=== PATIENT | female | born 1945 | race Caucasian/White ===

== ENCOUNTER → 2018-01-17 12:58 | Outpatient (CLI) | payer MEDICARE, SELFPAY | PROVIDERS: Family Provider Family Medicine; PCP Family Medicine; Visit Provider Family Medicine | DX: I25.10 Atherosclerotic heart disease of native coronary artery without angina pectoris (principal) | CPT/HCPCS: 93306 ==

== ENCOUNTER → 2018-02-18 10:45 | Outpatient (CLI) | payer MEDICARE, SELFPAY ==
--- NOTE | 2018-02-18 10:51 | XR_ITS ---
XR foot LT min 3V HISTORY: ITS.REASON: PAIN IN GREAT TOE ORDERING PHYSICIAN: Christina De Jesus PATIENT AGE: 72 years COMPARISON: None FINDINGS: No fracture or dislocation. No lytic or blastic change. There is normal mineralization.. The joint spaces are well-preserved. No significant degenerative/arthritic changes. No erosive changes evident. There is mild generalized vascular calcification IMPRESSION: Negative, no acute finding
== END ==
PROVIDERS: PCP Family Medicine; Visit Provider Nurse Practitioner
DX: M79.675 Pain in left toe(s) (principal)
CPT/HCPCS: 73630

== ENCOUNTER → 2018-06-16 12:24 | Outpatient (CLI) | payer MEDICARE, SELFPAY ==
[2018-06-16 14:35] LABS: Alanine Aminotransferase 27 U/L (12-78); Albumin Level 3.7 gm/dL (3.4-5.0); Albumin/Globulin Ratio 1.1 (1.1-1.8); Alkaline Phosphatase 82 U/L (46-116); Aspartate Amino Transferase 31 U/L (15-37); Blood Urea Nitrogen 21 mg/dL (7-18); Calcium 8.6 mg/dL (8.5-10.1); Carbon Dioxide 26 mmol/L (21.0-32.0); Chloride 99 mmol/L (98-107); Creatinine,Serum 0.65 mg/dL (0.55-1.02); Estimated Glomerular Filt Rate 89 ml/min (>60); GFR (African American) 108 ML/MIN (>60); Globulin 3.4 gm/dl (1.3-3.2); Glucose 164 mg/dL (74-106); Sodium 136 mmol/L (136-145); Total Protein,Serum 7.1 gm/dL (6.4-8.2)
[2018-06-17 13:18] LABS: Parathyroid Hormone Intact 21 pg/mL (15-65)
== END ==
PROVIDERS: PCP Family Medicine; Visit Provider Family Medicine
DX: I25.10 Atherosclerotic heart disease of native coronary artery without angina pectoris (principal)
CPT/HCPCS: 36415; 80053; 83970; 93005

== ENCOUNTER 2021-02-08 14:40 | Emergency (ER) | payer MEDICARE, SELFPAY ==
[2021-02-08] VITALS (8 sets, daily range): BP systolic 107–132; BP diastolic 47–71; PULSE 45–90; RESP 13–19; TEMP 36.6–36.7; O2SAT 97–99; BMI 23.0
--- NOTE | 2021-02-08 14:15 | ECG_ITS ---
APPROVED REPORT Exam: Resting ECG HR:97 bpm ECG Measurements Heart Rate 97 AXES ME 134 P 44 QRSd 90 QRS 56 QT 346 T 165 QTc 439 Conclusion Sinus rhythm with frequent premature ventricular complexes in a pattern of bigeminy Possible Left atrial enlargement Low voltage QRS ST & T wave abnormality, consider inferolateral ischemia Abnormal ECG Electronically signed by : Mani Blood, 02/09/2021 18:05:24
--- NOTE | 2021-02-08 15:01 | XR_ITS ---
PROCEDURE: XR CHEST PORTABLE CLINICAL HISTORY: CARDIAC WORKUP COMPARISON: CR CXR CHEST(2 VIEWS-NOT PORTABLE) from 12/12/2016 FINDINGS: This is somewhat of a lordotic projection however this is a good inspiratory effort. The lung bonner are clear of infiltrate and there is no pleural fluid. Cardiac size is normal considering the portable technique. Sternal wire sutures are noted surgical clips from previous CABG. There are apparent minimal calcifications of the mitral valve annulus. IMPRESSION: No acute findings. Dictated by: Dr. Raz Crawford MD 02/08/2021 15:37 Dr. Raz Crawford MD in [place] 02/08/2021 15:37
--- NOTE | 2021-02-08 15:06 | HMH.EDGENADL ---
ED Disposition Clinical Impression: Abnormal EKG Disposition: Home, Self-Care Condition on Discharge: Good Referrals: Levar Levin MD [Primary Care Provider] - 02/10/21 9:00 am (Call for an appointment on Saturday) Time of Disposition: 18:11 - Critical Care Critical Care Time: No Attestation: On 02/08/21, the high probability of a clinically significant, sudden or life threatening deterioration of the following system(s) required my full and direct attention, intervention and personal management. The time I documented below is in addition to time spent performing reported procedures but includes the following listed in this critical care notation. Medical Decision Making - Medical Records Medical records reviewed: Yes: I reviewed the patient's medical records. - Adonis Inquiry Pt receiving controlled substance: No Vital Signs: 02/08/21 14:43 02/08/21 15:01 02/08/21 15:30 Temperature 98 F Temperature Source Oral Pulse Rate 90 Pulse Rate [Radial] 88 Respiratory Rate 16 17 18 Blood Pressure 132/51 L 119/47 L Blood Pressure [Right Arm] 129/58 L Blood Pressure Mean [Right Arm] 81 02 Sat by Pulse Oximetry 98 99 Oxygen Delivery Method Room Air Room Air 02/08/21 16:00 02/08/21 16:18 02/08/21 16:30 Temperature Temperature Source Pulse Rate 45 L 54 L 83 Pulse Rate [Radial] Respiratory Rate 19 16 13 Blood Pressure 117/49 L 129/57 L 114/49 L Blood Pressure [Right Arm] Blood Pressure Mean [Right Arm] 02 Sat by Pulse Oximetry 99 99 98 Oxygen Delivery Method 02/08/21 17:00 Temperature Temperature Source Pulse Rate 50 L Pulse Rate [Radial] Respiratory Rate 19 Blood Pressure 107/50 L Blood Pressure [Right Arm] Blood Pressure Mean [Right Arm] 02 Sat by Pulse Oximetry 97 Oxygen Delivery Method - Lab Data Lab results reviewed: Yes: I reviewed the patient's lab results. Lab Results 02/08/21 14:55: WBC 10.2, RBC 4.17 L, Hgb 13.3, Hct 38.4, MCV 92.1, MCH 31.9 H, MCHC 34.6, RDW 12.7, Plt Count 198, MPV 7.7, Neut % (Auto) 54.2, Lymph % (Auto) 40.4, Kimble % (Auto) 3.5, Eos % (Auto) 1.4, Baso % (Auto) 0.5, Neut # (Auto) 5.5, Lymph # (Auto) 4.1, Kimble # (Auto) 0.4, Eos # (Auto) 0.1, Baso # (Auto) 0.1 02/08/21 14:55: Sodium 137, Potassium 3.6, Chloride 98, Carbon Dioxide 23, Anion Gap 19.6 H, BUN 14, Creatinine 0.60, Estimated Creat Clear 45, Estimated GFR 97, Est GFR ( Amer) 118, Glucose 244 H, Calcium 9.4, Troponin I < 0.01 Result diagrams: 02/08/21 14:55 02/08/21 14:55 Orders (Tests/Meds): ORDERS Category Date Time Status Troponin I Q3H Lab 02/08/21 18:15 Ordered Troponin I Q3H Lab 02/08/21 21:15 Ordered - Radiology Data #1 Image(s): Chest Image Reviewed: Yes I have reviewed radiologist's interpretation Preliminary Findings: Normal/NAD - ECG Data Tracing #1 I reviewed this ECG and interpreted as documented below: 97 bpm with bigeminy. Nonspecific ST wave changes. Normal intervals. This is change from normal sinus rhythm with an incomplete right bundle branch block in 2018. ECG initial impression date: 02/08/21 ECG initial impression time: 15:00 Medical Decision Narrative: 75yo F evaluated for low heart rate. Patient is in no acute distress on initial evaluation. She is found to be in bigeminy on presenting EKG. Patient has no symptoms. Routine cardiac work-up is been initiated and is unremarkable. Troponin is less than 0.01. Case discussed with Dr. Levin as this EKG is a new finding for her. As the patient is asymptomatic and has normal work-up, he is comfortable with her discharge home. He request to see her in his [place] clinic on Saturday. She is to call tomorrow for an appointment time slot. All this was confirmed to the patient and to her daughter via phone. She is comfortable with the plan and excited to go home. General Adult HPI - General Chief complaint: Recheck/Abnormal Lab/Rx Stated complaint: HR low, s
[2021-02-08 15:11] LABS: Basophils # 0.1 K/mm3 (0-0.2); Basophils % 0.5 % (0.1-2.0); Eosinophils # 0.1 K/mm3 (0.0-0.4); Eosinophils % 1.4 % (0.1-12.0); Hematocrit 38.4 % (37.0-47.0); Hemoglobin 13.3 g/dL (12.2-16.2); Lymphocytes # 4.1 K/mm3 (0.7-4.5); Lymphocytes % 40.4 % (10-50); Mean Corpuscular HGB Conc 34.6 g/dL (31.8-35.4); Mean Corpuscular Hemoglobin 31.9 pg (27.0-31.2); Mean Corpuscular Volume 92.1 fl (81-99); Mean Platelet Volume 7.7 fl (7.4-10.4); Monocytes # 0.4 K/mm3 (0.1-1.0); Monocytes % 3.5 % (1.7-9.3); Neutrophils # 5.5 K/mm3 (1.8-7.8); Neutrophils % 54.2 % (37.0-80.0); Platelet Count 198 K/mm3 (142-424); Red Blood Count 4.17 M/mm3 (4.20-5.40); Red Cell Distribution Width 12.7 % (11.5-17.5); White Blood Count 10.2 K/mm3 (4.8-10.8)
[2021-02-08 15:15] LABS: Anion Gap 19.6 mEq/L (5-15); Blood Urea Nitrogen 14 mg/dl (7-17); Calcium 9.4 mg/dl (8.4-10.2); Carbon Dioxide 23 mmol/L (22.0-30.0); Chloride 98 mmol/L (98-107); Creatinine Clearance Estimated 45 mL/min (50-200); Estimated Glomerular Filt Rate 97 ml/min (>60); GFR (African American) 118 ML/MIN (>60); Glucose 244 mg/dl (74-100); Potassium 3.6 mmoL/L (3.5-5.1); Sodium 137 mmol/L (136-145)
[2021-02-08 15:28] LABS: Troponin I < 0.01 ng/ml (0.00-0.034)
--- NOTE | 2021-02-08 17:39 | PC.NURSE ---
Dr Ollie garcía.
--- NOTE | 2021-02-08 17:59 | PC.NURSE ---
paging dr philip again
== END 2021-02-08 18:22 | disposition home or self-care (01) ==
PROVIDERS: Emergency Provider Family Medicine; PCP Family Medicine
DX: I49.5 Sick sinus syndrome (principal); R94.31 Abnormal electrocardiogram [ECG] [EKG]; E11.9 Type 2 diabetes mellitus without complications; E78.5 Hyperlipidemia, unspecified; I10 Essential (primary) hypertension; Z79.899 Other long term (current) drug therapy
CPT/HCPCS: 71045; 80048; 84484; 85025; 93005; 96374; 99283

== ENCOUNTER → 2021-02-10 14:45 | Outpatient (CLI) | payer MEDICARE, SELFPAY ==
--- NOTE | 2021-02-10 14:50 | CA_ITS ---
APPROVED REPORT EXAM: Comprehensive 2D, Doppler, and color-flow Echocardiogram Bulkhead Carpenter: Roberta Luna RVT Ht: 5 ft 3 in Wt: 130lbs BSA: 1.61 BP: 107/50 mmHg Indications: ABN EKG,CABG,BIGEMINY,HTN,HLD,[place] SYNDROME,DM 2D Dimensions LVOT 2.03 cm (M/F) 1.5-2.5 LA Volume 34.00 mL LA Volume Index 21.11 mL/m2 (M/F) 16-34 M-Mode Dimensions RVDd 3.00 cm (0.9-2.6) LA Diam 4.25 cm (1.9-4.0) LVDd 4.29 cm (3.5-5.7) Ao Diam 2.89 cm (2.0-3.7) LVDs 3.22 cm (3.5-5.7) IVSd 1.41 cm (0.6-1.1) PWd 0.94 cm (0.6-1.1) EF (Teich) 49.60% FS 24.90% EDV (Teich) 82.60 mL ESV (Teich) 41.60 mL LV Diastology MED E' 6.80 (< 7 cm/sec) LAT A' 6.50 cm/s Aortic Valve LVOT Max 107.00 (70-110 cm/s) LVOT VTI 25.19 cm AoV Peak Jairo. 191.00 (50-130 cm/s) AO Peak GR. 14.60 mmHg AO Mean GR. 7.90 (<5 mmHg) AO VTI 38.71 (18-25 cm) FABIOLA (VTI) 2.11 (2.5-4.5 cm2) Pulmonary Valve PV Peak Velocity 76.00 (50-150 cm/s) Tricuspid Valve TR P. Velocity 278.00 cm/s RAP Estimate 10.00 mmHg RVSP 40.90 mmHg Left Ventricle Left atrium is moderately enlarged, left ventricle is normal size, mild concentric left ventricular hypertrophy, visually estimated ejection fraction 55% with no regional wall motion abnormality, grade 1 diastolic dysfunction seen without tissue Doppler evidence of raise left atrial pressure. Right Ventricle Right atrium and right ventricle mildly enlarged with normal contractility. Aortic Valve Aortic valve is thickened and calcified without Doppler evidence of aortic stenosis or aortic insufficiency. Mitral Valve Mitral valve has mitral annular calcification which extends to both anterior posterior mitral leaflet, there is no significant mitral inflow obstruction, chordal structures are calcified. There is mild mitral regurgitation. Tricuspid Valve Tricuspid valve leaflets are minimally thickened, there is mild tricuspid regurgitation, calculated right ventricular systolic pressure 39 mmHg. Pulmonic Valve Pulmonic valve is poorly visualized. Great Vessels Aortic root is normal size. Pericardium No significant pericardial effusion noted. Conclusion 1. Biatrial enlargement, normal left ventricular size, mild concentric left ventricular hypertrophy, visually estimated ejection fraction 55% with no regional wall motion abnormality, grade 1 diastolic dysfunction seen without tissue Doppler evidence of raise left atrial pressure. 2. Thickened and calcified aortic valve without aortic stenosis or aortic insufficiency. 3. Mild mitral and tricuspid regurgitation, calculated right ventricular systolic pressure 39 mmHg. 4. No significant pericardial effusion noted. Electronically signed by : Winston Romero, 02/11/2021 17:48:04
== END ==
PROVIDERS: PCP Family Medicine; Visit Provider Physician Assistant
DX: E11.69 Type 2 diabetes mellitus with other specified complication (principal); E78.5 Hyperlipidemia, unspecified; I10 Essential (primary) hypertension; I25.10 Atherosclerotic heart disease of native coronary artery without angina pectoris; I49.3 Ventricular premature depolarization; R94.31 Abnormal electrocardiogram [ECG] [EKG]; Z79.84 Long term (current) use of oral hypoglycemic drugs
CPT/HCPCS: 93306

== ENCOUNTER → 2021-02-22 11:19 | Outpatient (CLI) | payer MEDICARE, SELFPAY ==
--- NOTE | 2021-02-22 11:21 | CA_ITS ---
APPROVED REPORT Exam: Exercise Treadmill Technologist: sin carmichael, Ht: 5 ft 3 in Wt: 130 lbs BSA: 1.61 m2 HR: 70 bpm BP: 146/60 mmHg Indications: CAD Medical History Medications: Lisinopril,,,,, Metoprolol,,,,, Asa,,,,, Metformin,,,,, Synthroid,,,,, Crestor,,,,, FeNOfibrate,,,,, DApagliflozin,,,,, GlimepERIDE,,,,, Allergies: NKA Cardiac Risk Factors: HTN, Hyperlipidemia, Diabetes (non-insulin) Stress Test Details Test: Jose HR Resting HR: 80 bpm Max Heart Rate (APMHR): 145.813221 bpm Max HR Achieved: 146 bpm Target HR (85% APMHR): 123.998463 bpm % of APMHR: 100.69 Recovery HR: 98 bpm BP Resting BP: 146/60 mmHg Max BP: 156/63 mmHg Recovery BP: 130.0/70.0 mmHg ECG Resting ECG: NSR, PVC's, ST abns inferiorly Clinical Exercise duration: 05:36 min Highest Stage Achieved: Stage 2: 2.5 mph at 12% grade. Exercise capacity: 7.0 METs Stress ECG Conclusion Exercised 5:36 on Jose Protocol, stopping due to SOA. No chest pain. Moderately frequent isolated PVC's, Occ PAC, and some short runs of SVT in recovery. In recovery there is 1.25mm of horizontal ST depression in lead 1 and 0.5mm in lead avl with deep T wave inversion, later in recovery. Also mild exaggeration of baseline ST depression inferiorly. Abnormal GXT. No imaging. Electronically signed by : Giorgio Hernandez, 02/23/2021 09:23:22
== END ==
PROVIDERS: PCP Family Medicine; Visit Provider Physician Assistant
DX: I25.10 Atherosclerotic heart disease of native coronary artery without angina pectoris (principal); R94.31 Abnormal electrocardiogram [ECG] [EKG]; I49.3 Ventricular premature depolarization
CPT/HCPCS: 93017

== ENCOUNTER → 2021-03-14 11:57 | Outpatient (CLI) | payer MEDICARE, SELFPAY ==
[2021-03-14 13:00] LABS: Anion Gap 16.5 mEq/L (5-15); Blood Urea Nitrogen 20 mg/dl (7-17); Calcium 9.8 mg/dl (8.4-10.2); Carbon Dioxide 26 mmol/L (22.0-30.0); Chloride 100 mmol/L (98-107); Estimated Glomerular Filt Rate 81 ml/min (>60); GFR (African American) 98 ML/MIN (>60); Glucose 149 mg/dl (74-100); Potassium 4.5 mmoL/L (3.5-5.1); Sodium 138 mmol/L (136-145)
[2021-03-14 13:21] LABS: Basophils % 0.4 % (0.1-2.0); Eosinophils # 0.1 K/mm3 (0.0-0.4); Eosinophils % 1.4 % (0.1-12.0); Hematocrit 38.9 % (37.0-47.0); Hemoglobin 13.2 g/dL (12.2-16.2); Lymphocytes # 3.6 K/mm3 (0.7-4.5); Lymphocytes % 35.4 % (10-50); Mean Corpuscular HGB Conc 33.9 g/dL (31.8-35.4); Mean Corpuscular Hemoglobin 31.3 pg (27.0-31.2); Mean Corpuscular Volume 92.3 fl (81-99); Mean Platelet Volume 7.6 fl (7.4-10.4); Monocytes # 0.4 K/mm3 (0.1-1.0); Monocytes % 3.9 % (1.7-9.3); Neutrophils # 5.9 K/mm3 (1.8-7.8); Neutrophils % 58.8 % (37.0-80.0); Platelet Count 194 K/mm3 (142-424); Red Blood Count 4.22 M/mm3 (4.20-5.40); Red Cell Distribution Width 12.7 % (11.5-17.5); White Blood Count 10.1 K/mm3 (4.8-10.8)
== END ==
PROVIDERS: Visit Provider Internal Medicine Cardiovascular Disease
DX: E11.9 Type 2 diabetes mellitus without complications (principal); E78.5 Hyperlipidemia, unspecified; I10 Essential (primary) hypertension; I25.10 Atherosclerotic heart disease of native coronary artery without angina pectoris; R94.39 Abnormal result of other cardiovascular function study; Z95.1 Presence of aortocoronary bypass graft; Z01.812 Encounter for preprocedural laboratory examination; Z20.822 Contact with and (suspected) exposure to COVID-19; Z79.84 Long term (current) use of oral hypoglycemic drugs
CPT/HCPCS: 80048; 85025; U0003

== ENCOUNTER 2021-03-17 07:58 | Day surgery (SDC) | payer MEDICARE, SELFPAY ==
[2021-03-17] VITALS (12 sets, daily range): BP systolic 98–141; BP diastolic 53–76; PULSE 60–74; RESP 18–20; TEMP 36.7; O2SAT 95–100; BMI 23.0
--- NOTE | 2021-03-17 | IR_ITS ---
APPROVED REPORT Patient Location: Outpatient PROCEDURES Left heart catheterization Left ventriculogram Selective coronary angiogram Selective engagement of the left internal mammary artery to the LAD Selective engagement of the saphenous vein graft to circumflex artery Selective engage in the saphenous vein graft to the right coronary INDICATION Coronary artery disease, History of coronary bypass surgery, Abnormal stress test Informed consent was obtained prior to the procedure. COMPLICATIONS NONE Estimated Blood Loss: LESS THAN 10 ML TECHNIQUE One percent lidocaine used to anesthetize the right groin. The right femoral artery was accessed via the Seldinger technique and a 5 Latvian sheath was placed in the right femoral artery. A JL 4, JR4 catheter were used to perform left heart catheterization, left ventriculogram selective coronary angiography as well as selective engagement of the 2 vein grafts and the left internal mammary artery. At the end of the procedure the patient was transferred to the postop holding area in stable condition for sheath removal. ANGIOGRAPHIC RESULTS The left main artery Normal The left anterior descending artery Is patent in the proximal segment and has an 80% stenosis between the first diagonal artery and the first septal youth support worker. Distal to the second septal youth support worker the LAD is then occluded. First diagonal artery is a small to medium sized vessel with no competitive flow however the vessel was patent and does supply a moderate amount of myocardium through diffuse small vessels The circumflex artery Probably nondominant and proximally occluded distally the vessel fills via left to left collaterals mostly from the septal perforators The right coronary artery Is a dominant vessel and proximally occluded The BARNES ventriculogram reveals Normal 65% The left ventricular end-diastolic pressure 10 mmHg Left internal mammary artery is widely patent to the LAD Saphenous vein graft to circumflex artery is ostially occluded Saphenous vein graft to the right coronary is ostially occluded IMPRESSION Coronary disease as described above Normal ejection fraction Normal left ventricular and SI pressure PLAN 1. Medical management. Patient has excellent collaterals and also has normal ejection fraction. 2. Maximize antianginal medications and standard therapy for ischemic heart disease Electronically signed by : Giorgio Hernandez, 03/17/2021 15:26:27
== END 2021-03-17 17:29 | disposition home or self-care (01) ==
LOC: CATHLAB 08:01
PROVIDERS: PCP Family Medicine; Visit Provider Internal Medicine
DX: I25.10 Atherosclerotic heart disease of native coronary artery without angina pectoris (principal); I25.810 Atherosclerosis of coronary artery bypass graft(s) without angina pectoris; R94.39 Abnormal result of other cardiovascular function study; E11.9 Type 2 diabetes mellitus without complications; Z79.84 Long term (current) use of oral hypoglycemic drugs; Z95.1 Presence of aortocoronary bypass graft; I10 Essential (primary) hypertension
CPT/HCPCS: 93459; 99152; C1725; C1769; C1894; J1644; Q9967

== ENCOUNTER → 2021-04-10 11:20 | Outpatient (CLI) | payer MEDICARE, SELFPAY | PROVIDERS: Visit Provider Ophthalmology | DX: Z01.812 Encounter for preprocedural laboratory examination (principal); Z20.822 Contact with and (suspected) exposure to COVID-19 | CPT/HCPCS: U0003 ==

== ENCOUNTER 2021-04-11 09:34 | Day surgery (SDC) | payer MEDICARE, SELFPAY ==
[2021-04-05 13:31] VITALS: BMI 23.0
[2021-04-11 09:50] VITALS: BP 139/52; PULSE 88; RESP 18; TEMP 36.5; O2SAT 99
[2021-04-11 10:08] LABS: POC Glucose,Bedside 194 (70-110)
[2021-04-11 11:19] VITALS: BP 117/58; PULSE 69; RESP 16; O2SAT 99
[2021-04-11 11:24] VITALS: BP 106/58; PULSE 72; RESP 16; O2SAT 99
[2021-04-11 11:29] VITALS: BP 107/57; PULSE 72; RESP 16; O2SAT 99
[2021-04-11 11:34] VITALS: BP 99/54; PULSE 69; RESP 16; O2SAT 100
[2021-04-11 11:35] VITALS: BP 119/58; PULSE 71; RESP 16; TEMP 36.6; O2SAT 100
== END 2021-04-11 11:45 | disposition home or self-care (01) ==
LOC: OR 09:35
PROVIDERS: PCP Family Medicine; Visit Provider Ophthalmology
DX: H25.811 Combined forms of age-related cataract, right eye (principal); H53.149 Visual discomfort, unspecified; Z96.1 Presence of intraocular lens; E11.9 Type 2 diabetes mellitus without complications; I10 Essential (primary) hypertension; E78.5 Hyperlipidemia, unspecified; Z95.1 Presence of aortocoronary bypass graft; Z79.82 Long term (current) use of aspirin; Z79.84 Long term (current) use of oral hypoglycemic drugs; Z79.899 Other long term (current) drug therapy
CPT/HCPCS: 66984; 82962; V2632

== ENCOUNTER → 2022-02-27 12:17 | Outpatient (CLI) | payer MEDICARE, SELFPAY ==
[2022-02-27 18:51] LABS: Alanine Aminotransferase 24 U/L (12-78); Albumin Level 4.2 g/dl (3.5-5.0); Albumin/Globulin Ratio 1.6 (1.1-1.8); Alkaline Phosphatase 77 U/L (38-126); Anion Gap 13.9 mEq/L (5-15); Aspartate Amino Transferase 39 U/L (14-36); Bilirubin,Total 0.5 mg/dl (0.2-1.3); Blood Urea Nitrogen 16 mg/dl (7-17); Calcium 10.2 mg/dl (8.4-10.2); Carbon Dioxide 27 mmol/L (22.0-30.0); Chloride 101 mmol/L (98-107); Estimated Glomerular Filt Rate 97 ml/min (>60); GFR (African American) 118 ML/MIN (>60); Globulin 2.7 g/dL (1.3-3.2); Glucose 191 mg/dl (74-100); Potassium 4.9 mmoL/L (3.5-5.1); Sodium 137 mmol/L (136-145); Total Protein,Serum 6.9 g/dl (6.3-8.2)
== END ==
PROVIDERS: PCP Family Medicine; Visit Provider Family Medicine
DX: E11.65 Type 2 diabetes mellitus with hyperglycemia (principal); Z79.84 Long term (current) use of oral hypoglycemic drugs
CPT/HCPCS: 80053

== ENCOUNTER → 2022-05-29 10:15 | Outpatient (CLI) | payer MEDICARE, SELFPAY ==
[2022-05-29 19:08] LABS: Alanine Aminotransferase 19 U/L (12-78); Albumin Level 4.3 g/dl (3.5-5.0); Albumin/Globulin Ratio 1.5 (1.1-1.8); Alkaline Phosphatase 78 U/L (38-126); Anion Gap 19.6 mEq/L (5-15); Aspartate Amino Transferase 33 U/L (14-36); Bilirubin,Total 0.6 mg/dl (0.2-1.3); Blood Urea Nitrogen 15 mg/dl (7-17); Calcium 9.5 mg/dl (8.4-10.2); Carbon Dioxide 25 mmol/L (22.0-30.0); Chloride 100 mmol/L (98-107); Estimated Glomerular Filt Rate 97 ml/min (>60); GFR (African American) 117 ML/MIN (>60); Globulin 2.8 g/dL (1.3-3.2); Glucose 120 mg/dl (74-100); Potassium 4.6 mmoL/L (3.5-5.1); Sodium 140 mmol/L (136-145); Total Protein,Serum 7.1 g/dl (6.3-8.2)
== END ==
PROVIDERS: PCP Family Medicine; Visit Provider Family Medicine
DX: E11.65 Type 2 diabetes mellitus with hyperglycemia (principal); Z79.84 Long term (current) use of oral hypoglycemic drugs
CPT/HCPCS: 80053

== ENCOUNTER → 2022-07-17 09:40 | Outpatient (CLI) | payer MEDICARE, SELFPAY ==
[2022-07-17 19:21] LABS: Erythrocyte Sedimentation Rate 21 mm/hr (0-30)
[2022-07-17 19:49] LABS: Thyroid Stimulating Hormone 0.77 uIU/mL (0.465-4.68)
== END ==
PROVIDERS: PCP Family Medicine; Visit Provider Family Medicine
DX: E11.69 Type 2 diabetes mellitus with other specified complication (principal); L65.9 Nonscarring hair loss, unspecified; Z79.84 Long term (current) use of oral hypoglycemic drugs; Z79.899 Other long term (current) drug therapy
CPT/HCPCS: 84443; 85651

== ENCOUNTER → 2022-07-31 08:19 | Outpatient (POV) | payer MEDICARE, SELFPAY | PROVIDERS: Visit Provider Dermatology | DX: Z00.00 Encounter for general adult medical examination without abnormal findings (principal) ==

== ENCOUNTER → 2022-08-31 10:00 | Outpatient (CLI) | payer MEDICARE, SELFPAY ==
[2022-08-31 18:35] LABS: Alanine Aminotransferase 23 U/L (12-78); Albumin Level 4.7 g/dl (3.5-5.0); Albumin/Globulin Ratio 1.7 (1.1-1.8); Alkaline Phosphatase 58 U/L (38-126); Anion Gap 16.1 mEq/L (5-15); Aspartate Amino Transferase 37 U/L (14-36); Bilirubin,Total 0.6 mg/dl (0.2-1.3); Blood Urea Nitrogen 17 mg/dl (7-17); Calcium 10.1 mg/dl (8.4-10.2); Carbon Dioxide 24 mmol/L (22.0-30.0); Chloride 103 mmol/L (98-107); Chol/HDL Ratio 3.8 (1-3.5); Cholesterol 166 mg/dl (140-200); Estimated Glomerular Filt Rate 81 ml/min (>60); GFR (African American) 98 ML/MIN (>60); Globulin 2.7 g/dL (1.3-3.2); Glucose 121 mg/dl (74-100); HDL Cholesterol 44 mg/dl (40-60); Potassium 4.1 mmoL/L (3.5-5.1); Sodium 139 mmol/L (136-145); Total Protein,Serum 7.4 g/dl (6.3-8.2); Triglycerides 237 mg/dl (30-150); VLDL Cholesterol 47 mg/dL (0-40)
[2022-08-31 18:45] LABS: Direct LDL Cholesterol 86.37 mg/dL (100-129)
== END ==
PROVIDERS: PCP Family Medicine; Visit Provider Family Medicine
DX: E78.5 Hyperlipidemia, unspecified (principal); E11.69 Type 2 diabetes mellitus with other specified complication; Z79.84 Long term (current) use of oral hypoglycemic drugs
CPT/HCPCS: 80053; 80061

== ENCOUNTER → 2022-10-26 11:00 | Outpatient (CLI) | payer MEDICARE, SELFPAY ==
[2022-10-26 19:48] LABS: Chloride 102 mmol/L (98-107); Potassium 4.6 mmoL/L (3.5-5.1); Sodium 139 mmol/L (136-145)
[2022-10-26 19:51] LABS: Alanine Aminotransferase 21 U/L (12-78); Albumin Level 4.6 g/dl (3.5-5.0); Albumin/Globulin Ratio 1.7 (1.1-1.8); Alkaline Phosphatase 63 U/L (38-126); Anion Gap 15.6 mEq/L (5-15); Aspartate Amino Transferase 38 U/L (14-36); Bilirubin,Total 0.8 mg/dl (0.2-1.3); Blood Urea Nitrogen 19 mg/dl (7-17); Carbon Dioxide 26 mmol/L (22.0-30.0); Estimated Glomerular Filt Rate 97 ml/min (>60); GFR (African American) 117 ML/MIN (>60); Globulin 2.7 g/dL (1.3-3.2); Total Protein,Serum 7.3 g/dl (6.3-8.2)
[2022-10-26 19:52] LABS: Calcium 9.7 mg/dl (8.4-10.2); Glucose 129 mg/dl (74-100)
== END ==
PROVIDERS: PCP Family Medicine; Visit Provider Family Medicine
DX: I10 Essential (primary) hypertension (principal)
CPT/HCPCS: 80053

== ENCOUNTER → 2023-03-19 14:50 | Outpatient (CLI) | payer MEDICARE, SELFPAY ==
[2023-03-19 18:32] LABS: Anion Gap 15.3 mEq/L (5-15); Blood Urea Nitrogen 16 mg/dl (7-17); Calcium 9.7 mg/dl (8.4-10.2); Carbon Dioxide 25 mmol/L (22.0-30.0); Chloride 104 mmol/L (98-107); Estimated Glomerular Filt Rate 69 ml/min (>60); GFR (African American) 84 ML/MIN (>60); Glucose 255 mg/dl (74-100); Potassium 4.3 mmoL/L (3.5-5.1); Sodium 140 mmol/L (136-145)
[2023-03-19 19:24] LABS: Hemoglobin A1C 7.4 % (4.0-6.0)
== END ==
PROVIDERS: PCP Family Medicine; Visit Provider Family Medicine
DX: E11.69 Type 2 diabetes mellitus with other specified complication; Z79.84 Long term (current) use of oral hypoglycemic drugs
CPT/HCPCS: 80048; 83036

== ENCOUNTER 2023-06-10 10:45 | Emergency (ER) | payer MEDICARE, SELFPAY ==
[2023-06-10 10:46] VITALS: BP 112/73; PULSE 87; RESP 18; TEMP 36.5; O2SAT 99; BMI 22.1
--- NOTE | 2023-06-10 12:09 | EXP.UTC ---
Discharge Plan Disposition Patient Disposition: Home, Self-Care Condition: Good Prescriptions Prescriptions: New methocarbamol 500 mg tablet 500 mg PO BID PRN (Reason: muscle spasm) Qty: 12 0RF No Action aspirin [Adult Low Dose Aspirin] 81 mg tablet,delayed release (DR/EC) 81 mg PO ONCE metformin 500 mg tablet 500 mg PO BID Qty: 90 2RF levothyroxine 75 mcg tablet 75 mcg PO DAILY 90 Days Qty: 90 1RF metoprolol succinate 25 mg tablet extended release 24 hr See Rx Instructions .ROUTE .COMPLEX Qty: 90 0RF Dose Instruction: TAKE 1 TABLET EVERY DAY Rx Instructions: TAKE 1 TABLET EVERY DAY (DME) Blood Glucose Test Strip See Rx Instructions .ROUTE .MEDSUPPLY Qty: 50 12RF Rx Instructions: Test glucose once daily rosuvastatin 5 mg tablet 5 mg PO DAILY Qty: 90 3RF fenofibrate nanocrystallized [Tricor] 48 mg tablet 48 mg PO DAILY Qty: 90 0RF lisinopril 10 mg tablet See Rx Instructions .ROUTE .COMPLEX Qty: 90 0RF Dose Instruction: TAKE 1 TABLET EVERY DAY FOR HIGH BLOOD PRESSURE Rx Instructions: TAKE 1 TABLET EVERY DAY FOR HIGH BLOOD PRESSURE glimepiride 4 mg tablet See Rx Instructions .ROUTE .COMPLEX Qty: 90 0RF Dose Instruction: TAKE 1 TABLET EVERY DAY FOR DIABETES Rx Instructions: TAKE 1 TABLET EVERY DAY FOR DIABETES Trulicity 1.5 mg/0.5 mL pen injector 1.5 mg SQ WEEKLY Qty: 2 2RF Referrals Follow up/Referrals: Levar Levin MD [Primary Care Provider] - See instructions Activity Restrictions/Add. Instructions Additional Instructions/Restrictions: *Ibuprofen nir 6 hours with meal as needed for pain/inflammation if you can take it if not take Tylenol *moist heat every 20 minutes 3-4 times a day to affected area *Muscle relaxer every 12 hours as needed for muscle spasms but remember, it WILL cause drowsiness You cannot take it and drive, operate machinery or care for small children. *Keep this area active, no movement leads to more stiffness, However take it easy and avoid heavy lifting pushing or pulling *Follow up with you family doctor if no improvement for further treatment Clinical Impressions Clinical Impression: Sciatica of left side Instructions Patient Instructions: DI for Sciatica, Sciatica, Methocarbamol Discharge ED Provider: Kiesha Buckley [facility] [place] General Stated complaint: BUTTOCKS AND BACK LT SIDE Mode of Arrival: Ambulatory Source of Information: Patient Limitations: No Limitations Time Seen by Provider: 06/10/23 12:09 Description of Symptoms (Recalled from Triage Doc. by RN): Pt was working out at the [facility]. She stated that for the last 3 weeks she has had lower back pain that radiates down her butt, and to her leg. This is on the left side. She stated that it just keeps getting worse. HEENT Symptoms (Recalled from RN notes): No Resp Symptoms (Recalled from RN notes): No Skin Symptoms (Recalled from RN notes): No MS Symptoms (Recalled from RN notes): Yes Functional Status (Recalled from RN notes): n/a History of Present Illness Provider Complaint: Patient states that she pulled her hamstring several years ago and thinks she may have aggrivated it States that she was exercising at the senior citizen's home about 3 weeks ago and felt a pain in her buttock area and states that it has not got any better States that pain is in her buttock area and goes down into her upper leg and worse when she sits on that side or raises leg Denies back pain Denies loss of control of bowel or bladder States that she feels like she pulled something Related Data Home Medications Medication Instructions Recorded Confirmed aspirin 81 mg tablet,delayed 81 mg PO ONCE CAD 11/16/17 06/10/23 release (Adult Low Dose Aspirin) Previous Rx's Medication Instructions Recorded levothyroxine 75 mcg tablet 75 mcg PO DAILY thyroid 90 days 12/31/22 #90 tabs metformin 500 mg tablet 500
[2023-06-10 12:28] VITALS: BP 112/73; PULSE 87; RESP 18; TEMP 36.5; O2SAT 99
== END 2023-06-10 12:28 | disposition home or self-care (01) ==
PROVIDERS: Emergency Provider Nurse Practitioner; PCP Family Medicine
DX: M54.32 Sciatica, left side (principal); I25.10 Atherosclerotic heart disease of native coronary artery without angina pectoris; I11.9 Hypertensive heart disease without heart failure; E78.5 Hyperlipidemia, unspecified; E11.9 Type 2 diabetes mellitus without complications; Z79.84 Long term (current) use of oral hypoglycemic drugs
CPT/HCPCS: 99204; 99212; G0463

== ENCOUNTER → 2023-08-14 23:27 | Outpatient (CLI) | payer MEDICARE, SELFPAY ==
[2023-08-14 18:47] LABS: Basophils # 0.1 K/mm3 (0-0.2); Basophils % 0.7 % (0.1-2.0); Eosinophils # 0.2 K/mm3 (0.0-0.4); Eosinophils % 1.8 % (0.1-12.0); Hematocrit 41.2 % (37.0-47.0); Hemoglobin 14.5 g/dL (12.2-16.2); Lymphocytes # 4.1 K/mm3 (0.7-4.5); Lymphocytes % 42.6 % (10-50); Mean Corpuscular HGB Conc 35.3 g/dL (31.8-35.4); Mean Corpuscular Hemoglobin 32.9 pg (27.0-31.2); Mean Corpuscular Volume 93.3 fl (81-99); Mean Platelet Volume 8.8 fl (7.4-10.4); Monocytes # 0.4 K/mm3 (0.1-1.0); Monocytes % 4.5 % (1.7-9.3); Neutrophils # 4.9 K/mm3 (1.8-7.8); Neutrophils % 50.5 % (37.0-80.0); Platelet Count 223 K/mm3 (142-424); Red Blood Count 4.41 M/mm3 (4.20-5.40); Red Cell Distribution Width 12.7 % (11.5-17.5); White Blood Count 9.7 K/mm3 (4.8-10.8)
[2023-08-14 18:52] LABS: Alanine Aminotransferase 25 U/L (12-78); Albumin Level 4.6 g/dl (3.5-5.0); Albumin/Globulin Ratio 1.6 (1.1-1.8); Alkaline Phosphatase 59 U/L (38-126); Anion Gap 14.1 mEq/L (5-15); Aspartate Amino Transferase 41 U/L (14-36); Bilirubin,Total 0.6 mg/dl (0.2-1.3); Blood Urea Nitrogen 13 mg/dl (7-17); Carbon Dioxide 24 mmol/L (22.0-30.0); Chloride 101 mmol/L (98-107); Estimated Glomerular Filt Rate 97 ml/min (>60); GFR (African American) 117 ML/MIN (>60); Globulin 2.9 g/dL (1.3-3.2); Glucose 113 mg/dl (74-100); Potassium 4.1 mmoL/L (3.5-5.1); Sodium 135 mmol/L (136-145); Total Protein,Serum 7.5 g/dl (6.3-8.2)
[2023-08-14 19:23] LABS: Thyroid Stimulating Hormone 0.15 uIU/mL (0.465-4.68)
[2023-08-14 19:46] LABS: Hemoglobin A1C 7.1 % (4.0-6.0)
== END ==
LOC: LAB.DROPOF 23:28
PROVIDERS: PCP Family Medicine; Visit Provider Nurse Practitioner
DX: R42 Dizziness and giddiness (principal); L65.9 Nonscarring hair loss, unspecified; E11.8 Type 2 diabetes mellitus with unspecified complications; Z79.84 Long term (current) use of oral hypoglycemic drugs
CPT/HCPCS: 80053; 83036; 84443; 85025

== ENCOUNTER 2023-09-24 22:05 | Outpatient (CLI) | payer MEDICARE, SELFPAY ==
[2023-09-24 19:24] LABS: Basophils # 0.1 K/mm3 (0-0.2); Basophils % 0.8 % (0.1-2.0); Eosinophils # 0.1 K/mm3 (0.0-0.4); Eosinophils % 1.5 % (0.1-12.0); Hematocrit 39.6 % (37.0-47.0); Hemoglobin 13.3 g/dL (12.2-16.2); Lymphocytes # 3.4 K/mm3 (0.7-4.5); Mean Corpuscular HGB Conc 33.6 g/dL (31.8-35.4); Mean Corpuscular Hemoglobin 32.3 pg (27.0-31.2); Mean Corpuscular Volume 96.1 fl (81-99); Mean Platelet Volume 9.4 fl (7.4-10.4); Monocytes # 0.3 K/mm3 (0.1-1.0); Neutrophils # 3.8 K/mm3 (1.8-7.8); Neutrophils % 49.7 % (37.0-80.0); Platelet Count 183 K/mm3 (142-424); Red Blood Count 4.12 M/mm3 (4.20-5.40); Red Cell Distribution Width 12.8 % (11.5-17.5); White Blood Count 7.7 K/mm3 (4.8-10.8)
[2023-09-24 19:57] LABS: Chloride 106 mmol/L (98-107); Sodium 138 mmol/L (136-145)
[2023-09-24 19:58] LABS: Potassium 4.6 mmoL/L (3.5-5.1)
[2023-09-24 20:00] LABS: Alanine Aminotransferase 23 U/L (12-78); Albumin Level 4.3 g/dl (3.5-5.0); Albumin/Globulin Ratio 1.6 (1.1-1.8); Alkaline Phosphatase 54 U/L (38-126); Anion Gap 12.6 mEq/L (5-15); Aspartate Amino Transferase 36 U/L (14-36); Bilirubin,Total 0.6 mg/dl (0.2-1.3); Blood Urea Nitrogen 15 mg/dl (7-17); Calcium 9.9 mg/dl (8.4-10.2); Carbon Dioxide 24 mmol/L (22.0-30.0); Estimated Glomerular Filt Rate 97 ml/min (>60); GFR (African American) 117 ML/MIN (>60); Globulin 2.7 g/dL (1.3-3.2); Glucose 147 mg/dl (74-100)
[2023-09-24 20:24] LABS: Magnesium 1.1 mg/dl (1.6-2.3)
== END 2023-09-24 23:59 ==
LOC: LAB.DROPOF 22:06
PROVIDERS: PCP Family Medicine; Visit Provider Family Medicine
DX: E11.9 Type 2 diabetes mellitus without complications (principal); I10 Essential (primary) hypertension; Z79.84 Long term (current) use of oral hypoglycemic drugs
CPT/HCPCS: 80053; 83735; 85025

== ENCOUNTER 2023-10-15 15:04 | Outpatient (CLI) | payer MEDICARE, SELFPAY | END 2023-10-15 23:59 | LOC: LAB.DROPOF 15:05 | PROVIDERS: PCP Nurse Practitioner; Visit Provider Nurse Practitioner | DX: R30.0 Dysuria (principal); B96.29 Other Escherichia coli [E. coli] as the cause of diseases classified elsewhere; B96.89 Other specified bacterial agents as the cause of diseases classified elsewhere | CPT/HCPCS: 87086 ==

== ENCOUNTER 2023-10-25 20:03 | Outpatient (CLI) | payer MEDICARE, SELFPAY | END 2023-10-25 23:59 | LOC: LAB.DROPOF 20:03 | PROVIDERS: PCP Nurse Practitioner Family; Visit Provider Nurse Practitioner Family | DX: R30.0 Dysuria (principal); B96.89 Other specified bacterial agents as the cause of diseases classified elsewhere | CPT/HCPCS: 87086 ==

== ENCOUNTER 2023-11-15 18:33 | Outpatient (CLI) | payer MEDICARE, SELFPAY ==
[2023-11-15 18:05] LABS: Basophils # 0.1 K/mm3 (0-0.2); Basophils % 1.1 % (0.1-2.0); Eosinophils # 0.1 K/mm3 (0.0-0.4); Eosinophils % 1.3 % (0.1-12.0); Hematocrit 40.8 % (37.0-47.0); Hemoglobin 13.3 g/dL (12.2-16.2); Lymphocytes # 3.2 K/mm3 (0.7-4.5); Mean Corpuscular HGB Conc 32.5 g/dL (31.8-35.4); Mean Corpuscular Hemoglobin 32.3 pg (27.0-31.2); Mean Corpuscular Volume 99.6 fl (81-99); Mean Platelet Volume 9.4 fl (7.4-10.4); Monocytes # 0.3 K/mm3 (0.1-1.0); Neutrophils # 3.6 K/mm3 (1.8-7.8); Neutrophils % 49.6 % (37.0-80.0); Platelet Count 229 K/mm3 (142-424); Red Cell Distribution Width 13.1 % (11.5-17.5); White Blood Count 7.3 K/mm3 (4.8-10.8)
[2023-11-15 18:47] LABS: Alanine Aminotransferase 25 U/L (12-78); Albumin Level 4.2 g/dl (3.5-5.0); Albumin/Globulin Ratio 1.6 (1.1-1.8); Alkaline Phosphatase 72 U/L (38-126); Aspartate Amino Transferase 37 U/L (14-36); Bilirubin,Total 0.8 mg/dl (0.2-1.3); Blood Urea Nitrogen 17 mg/dl (7-17); Calcium 9.9 mg/dl (8.4-10.2); Carbon Dioxide 26 mmol/L (22.0-30.0); Chloride 104 mmol/L (98-107); Chol/HDL Ratio 7.5 (1-3.5); Cholesterol 248 mg/dl (140-200); Estimated Glomerular Filt Rate 97 ml/min (>60); GFR (African American) 117 ML/MIN (>60); Globulin 2.7 g/dL (1.3-3.2); Glucose 242 mg/dl (74-100); HDL Cholesterol 33 mg/dl (40-60); Magnesium 1.3 mg/dl (1.6-2.3); Sodium 137 mmol/L (136-145); Total Protein,Serum 6.9 g/dl (6.3-8.2); Triglycerides 345 mg/dl (30-150); VLDL Cholesterol 69 mg/dL (0-40)
[2023-11-15 18:57] LABS: Hemoglobin A1C 8.3 % (4.0-6.0)
[2023-11-15 18:58] LABS: Direct LDL Cholesterol 130.63 mg/dL (100-129)
[2023-11-15 19:07] LABS: 25-OH Vitamin D, Total 18.6 ng/mL (30-100)
[2023-11-15 19:19] LABS: Thyroid Stimulating Hormone 0.61 uIU/mL (0.465-4.68)
[2023-11-15 19:38] LABS: Vitamin B12 283 pg/mL (239-931)
== END 2023-11-15 23:59 ==
LOC: LAB.DROPOF 18:34
PROVIDERS: PCP Nurse Practitioner Family; Visit Provider Nurse Practitioner Family
DX: E78.5 Hyperlipidemia, unspecified (principal); E11.9 Type 2 diabetes mellitus without complications; E55.9 Vitamin D deficiency, unspecified; R30.0 Dysuria; B95.2 Enterococcus as the cause of diseases classified elsewhere; Z79.84 Long term (current) use of oral hypoglycemic drugs
CPT/HCPCS: 80053; 80061; 82306; 82607; 83036; 83735; 84443; 85025; 87086

== ENCOUNTER 2023-11-29 07:39 | Outpatient (CLI) | payer MEDICARE, SELFPAY | END 2023-11-29 23:59 | LOC: LAB.DROPOF 12-01 07:40 | PROVIDERS: PCP Nurse Practitioner Family; Visit Provider Nurse Practitioner Family | DX: R30.0 Dysuria (principal); B96.89 Other specified bacterial agents as the cause of diseases classified elsewhere | CPT/HCPCS: 87086 ==

== ENCOUNTER 2023-12-17 18:00 | Outpatient (CLI) | payer MEDICARE, SELFPAY | END 2023-12-17 23:59 | disposition home or self-care (01) | LOC: LAB.DROPOF 12-18 12:53 | PROVIDERS: PCP Family Medicine; Visit Provider Family Medicine | DX: R30.0 Dysuria (principal); B95.2 Enterococcus as the cause of diseases classified elsewhere | CPT/HCPCS: 87086 ==

== ENCOUNTER 2024-01-14 12:05 | Outpatient (CLI) | payer MEDICARE, SELFPAY | END 2024-01-14 23:59 | disposition home or self-care (01) | LOC: LAB.DROPOF 01-15 12:05 | PROVIDERS: PCP Nurse Practitioner; Visit Provider Nurse Practitioner | DX: R30.0 Dysuria (principal) | CPT/HCPCS: 87086 ==

== ENCOUNTER 2024-02-03 15:47 | Outpatient (CLI) | payer MEDICARE, SELFPAY ==
[2024-02-03 15:45] LABS: Microscopic, Urine URINE MICROSCOPIC (MICROSCOPIC)
[2024-02-03 16:10] LABS: Appearance,Urine CLEAR (Clear); Bilirubin,Urine Negative (Negative); Blood, Urine Negative (Negative); Color,Urine YELLOW (Yellow); Glucose,Urine (UA) 2+ (Negative); Ketones,Urine Negative (Negative); Leukocyte Esterase,Urine Negative (Negative); Nitrate,Urine Negative (Negative); PH,Urine 5.5 (5.0-8.5); Protein,Urine Negative (Negative); Specific Gravity, Urine 1.025 (1.005-1.030); Urobilinogen,Urine 0.2 EU/dl (0.2)
[2024-02-03 16:57] LABS: Squamous Epithelial Cell,Urine Occasional #/hpf (0-5)
[2024-02-07 18:12] LABS: Atopobium vaginae Low - 0 Score (.); BVAB2 Low - 0 Score (.); Candida albicans NAA Negative (Negative); Candida glabrata Negative (Negative); Chlamydia Trachomatis NAA Negative (Negative); HSV 1 NAA Negative (Negative); HSV 2 NAA Negative (Negative); Megasphaera 1 Low - 0 Score (.); Neisseria gonorrhoeae NAA Negative (Negative); Trich vag NAA Negative (Negative)
== END 2024-02-03 23:59 | disposition home or self-care (01) ==
LOC: LAB.DROPOF 15:48
PROVIDERS: PCP Urology; Visit Provider Urology
DX: N39.0 Urinary tract infection, site not specified (principal); N89.8 Other specified noninflammatory disorders of vagina
CPT/HCPCS: 81001; 87086; 87491; 87529; 87591; 87661; 87798; 87801

== ENCOUNTER 2024-02-07 13:23 | Outpatient (CLI) | payer MEDICARE, SELFPAY ==
--- NOTE | 2024-02-07 13:29 | US_ITS ---
FINAL REPORT CLINICAL HISTORY: Post void residual FINDINGS: Limited sonographic images of the bladder were obtained. Bladder volume filled is 20 mL. Postvoid residual is 32 mL. There is no bladder wall thickening or obvious filling defect. IMPRESSION: Borderline elevated postvoid residual. Reviewed, Interpreted and Dictated by Levar Mendez MD Transcribed by Mikaela Morales Authenticated and [facility]
== END 2024-02-07 23:59 | disposition home or self-care (01) ==
LOC: RAD 13:24
PROVIDERS: PCP Family Medicine; Visit Provider Urology
DX: N95.2 Postmenopausal atrophic vaginitis (principal); N39.0 Urinary tract infection, site not specified
CPT/HCPCS: 76857

== ENCOUNTER 2024-03-03 18:39 | Outpatient (CLI) | payer MEDICARE, SELFPAY | END 2024-03-03 23:59 | disposition home or self-care (01) | LOC: LAB.DROPOF 18:43 | PROVIDERS: PCP Nurse Practitioner; Visit Provider Nurse Practitioner | DX: N39.0 Urinary tract infection, site not specified (principal); B96.20 Unspecified Escherichia coli [E. coli] as the cause of diseases classified elsewhere | CPT/HCPCS: 87086; 87088; 87186 ==

== ENCOUNTER 2024-03-17 10:22 | Outpatient (CLI) | payer MEDICARE, SELFPAY ==
[2024-03-17 19:00] LABS: Basophils # 0.1 K/mm3 (0-0.2); Basophils % 0.8 % (0.1-2.0); Eosinophils # 0.1 K/mm3 (0.0-0.4); Eosinophils % 1.4 % (0.1-12.0); Hematocrit 37.7 % (37.0-47.0); Hemoglobin 12.8 g/dL (12.2-16.2); Lymphocytes # 3.1 K/mm3 (0.7-4.5); Lymphocytes % 39.2 % (10-50); Mean Corpuscular Volume 97.1 fl (81-99); Mean Platelet Volume 9.3 fl (7.4-10.4); Monocytes # 0.4 K/mm3 (0.1-1.0); Monocytes % 5.2 % (1.7-9.3); Neutrophils # 4.2 K/mm3 (1.8-7.8); Neutrophils % 53.4 % (37.0-80.0); Platelet Count 222 K/mm3 (142-424); Red Blood Count 3.88 M/mm3 (4.20-5.40); Red Cell Distribution Width 13.5 % (11.5-17.5); White Blood Count 7.9 K/mm3 (4.8-10.8)
[2024-03-17 19:56] LABS: Thyroid Stimulating Hormone 1.24 uIU/mL (0.465-4.68)
[2024-03-17 20:16] LABS: Vitamin B12 > 1000 pg/mL (239-931)
== END 2024-03-17 23:59 | disposition home or self-care (01) ==
LOC: LAB.DROPOF 03-18 10:23
PROVIDERS: PCP Family Medicine; Visit Provider Family Medicine
DX: E53.8 Deficiency of other specified B group vitamins (principal); R30.0 Dysuria; E03.9 Hypothyroidism, unspecified
CPT/HCPCS: 82607; 84443; 85025; 87086

== ENCOUNTER 2024-04-13 14:06 | Outpatient (CLI) | payer MEDICARE, SELFPAY | END 2024-04-13 23:59 | disposition home or self-care (01) | LOC: LAB.DROPOF 04-14 10:23 | PROVIDERS: PCP Nurse Practitioner; Visit Provider Nurse Practitioner | DX: R30.0 Dysuria (principal) | CPT/HCPCS: 87086 ==

== ENCOUNTER 2024-06-30 10:14 | Outpatient (CLI) | payer MEDICARE, SELFPAY ==
[2024-06-30 18:48] LABS: Basophils # 0.1 K/mm3 (0-0.2); Basophils % 0.9 % (0.1-2.0); Eosinophils # 0.1 K/mm3 (0.0-0.4); Eosinophils % 1.4 % (0.1-12.0); Hematocrit 39.5 % (37.0-47.0); Hemoglobin 13.7 g/dL (12.2-16.2); Lymphocytes # 3.2 K/mm3 (0.7-4.5); Mean Corpuscular HGB Conc 34.6 g/dL (31.8-35.4); Mean Corpuscular Hemoglobin 32.3 pg (27.0-31.2); Mean Corpuscular Volume 93.4 fl (81-99); Mean Platelet Volume 9.3 fl (7.4-10.4); Monocytes # 0.4 K/mm3 (0.1-1.0); Neutrophils # 3.7 K/mm3 (1.8-7.8); Neutrophils % 49.7 % (37.0-80.0); Platelet Count 198 K/mm3 (142-424); Red Blood Count 4.23 M/mm3 (4.20-5.40); Red Cell Distribution Width 13.4 % (11.5-17.5); White Blood Count 7.5 K/mm3 (4.8-10.8)
[2024-06-30 18:54] LABS: Creatinine,Urine Random 56 mg/dL (Not Estab.)
[2024-06-30 18:56] LABS: Microalbumin/Creatinine Ratio 18.5
[2024-06-30 19:00] LABS: Hemoglobin A1C 6.8 % (4.0-6.0)
[2024-06-30 19:14] LABS: Alanine Aminotransferase 24 U/L (12-78); Albumin Level 4.4 g/dl (3.5-5.0); Albumin/Globulin Ratio 1.6 (1.1-1.8); Alkaline Phosphatase 69 U/L (38-126); Anion Gap 15.2 mEq/L (5-15); Aspartate Amino Transferase 36 U/L (14-36); Bilirubin,Total 0.8 mg/dl (0.2-1.3); Blood Urea Nitrogen 12 mg/dl (7-17); Calcium 9.5 mg/dl (8.4-10.2); Carbon Dioxide 24 mmol/L (22.0-30.0); Chloride 103 mmol/L (98-107); Chol/HDL Ratio 6.6 (1-3.5); Cholesterol 269 mg/dl (140-200); Estimated Glomerular Filt Rate 96 ml/min (>60); GFR (African American) 117 ML/MIN (>60); Globulin 2.7 g/dL (1.3-3.2); Glucose 148 mg/dl (74-100); HDL Cholesterol 41 mg/dl (40-60); Potassium 4.2 mmoL/L (3.5-5.1); Sodium 138 mmol/L (136-145); Total Protein,Serum 7.1 g/dl (6.3-8.2)
[2024-06-30 19:22] LABS: Triglycerides 717 mg/dl (30-150)
[2024-06-30 19:25] LABS: Direct LDL Cholesterol 99.99 mg/dL (100-129)
[2024-06-30 19:44] LABS: Thyroid Stimulating Hormone < 0.02 uIU/mL (0.465-4.68)
[2024-06-30 19:49] LABS: 25-OH Vitamin D, Total 39.6 ng/mL (30-100)
[2024-06-30 20:04] LABS: Vitamin B12 > 1000 pg/mL (239-931)
== END 2024-06-30 23:59 | disposition home or self-care (01) ==
LOC: LAB.DROPOF 07-01 10:33
PROVIDERS: PCP Nurse Practitioner; Visit Provider Nurse Practitioner
DX: K21.9 Gastro-esophageal reflux disease without esophagitis (principal); E11.69 Type 2 diabetes mellitus with other specified complication; I10 Essential (primary) hypertension; E78.5 Hyperlipidemia, unspecified; E53.8 Deficiency of other specified B group vitamins; N39.0 Urinary tract infection, site not specified; E55.9 Vitamin D deficiency, unspecified; E11.65 Type 2 diabetes mellitus with hyperglycemia; R30.0 Dysuria
CPT/HCPCS: 80053; 80061; 82043; 82306; 82570; 82607; 83036; 84443; 85025; 87086

== ENCOUNTER 2024-09-16 09:35 | Outpatient (CLI) | payer MEDICARE, SELFPAY ==
[2024-09-16 18:02] LABS: Basophils % 0.5 % (0.1-2.0); Eosinophils # 0.2 K/mm3 (0.0-0.4); Hematocrit 35.8 % (37.0-47.0); Hemoglobin 12.4 g/dL (12.2-16.2); Lymphocytes % 35.7 % (10-50); Mean Corpuscular HGB Conc 34.6 g/dL (31.8-35.4); Mean Corpuscular Volume 92.3 fl (81-99); Mean Platelet Volume 10.7 fl (7.4-10.4); Monocytes # 0.6 K/mm3 (0.1-1.0); Neutrophils # 4.6 K/mm3 (1.8-7.8); Neutrophils % 54.6 % (37.0-80.0); Platelet Count 193 K/mm3 (142-424); Red Blood Count 3.88 M/mm3 (4.20-5.40); Red Cell Distribution Width 12.5 % (11.5-17.5); White Blood Count 8.4 K/mm3 (4.8-10.8)
[2024-09-16 18:26] LABS: Alanine Aminotransferase 25 U/L (12-78); Albumin Level 4.3 g/dl (3.5-5.0); Albumin/Globulin Ratio 1.8 (1.1-1.8); Alkaline Phosphatase 67 U/L (38-126); Anion Gap 18.1 mEq/L (5-15); Aspartate Amino Transferase 40 U/L (14-36); Bilirubin,Total 0.7 mg/dl (0.2-1.3); Blood Urea Nitrogen 15 mg/dl (7-17); Calcium 9.9 mg/dl (8.4-10.2); Carbon Dioxide 24 mmol/L (22.0-30.0); Chloride 98 mmol/L (98-107); Estimated Glomerular Filt Rate 119 ml/min (>60); GFR (African American) 144 ML/MIN (>60); Globulin 2.4 g/dL (1.3-3.2); Glucose 178 mg/dl (74-100); Potassium 4.1 mmoL/L (3.5-5.1); Sodium 136 mmol/L (136-145); Total Protein,Serum 6.7 g/dl (6.3-8.2)
[2024-09-16 18:37] LABS: Hemoglobin A1C 7.1 % (4.0-6.0)
[2024-09-16 18:57] LABS: Thyroid Stimulating Hormone 2.33 uIU/mL (0.465-4.68)
== END 2024-09-16 23:59 | disposition home or self-care (01) ==
LOC: LAB.DROPOF 09-17 09:35
PROVIDERS: PCP Nurse Practitioner; Visit Provider Nurse Practitioner
DX: R42 Dizziness and giddiness (principal); N39.0 Urinary tract infection, site not specified; E11.9 Type 2 diabetes mellitus without complications; E78.5 Hyperlipidemia, unspecified; I10 Essential (primary) hypertension
CPT/HCPCS: 80053; 83036; 84443; 85025; 87086

== ENCOUNTER 2024-09-17 12:05 | Outpatient (CLI) | payer MEDICARE, SELFPAY ==
--- NOTE | 2024-09-17 12:11 | XR_ITS ---
FINAL REPORT TECHNIQUE: Chest PA & Lateral CLINICAL HISTORY: bronchitis, pneumonia COMPARISON: None FINDINGS: 2 views of the chest were performed. The patient has undergone a prior midline sternotomy. The heart size is mildly enlarged. The mediastinum is within normal limits. There is no acute cardiopulmonary process. There are no pleural effusions. There is no pneumothorax. The bony thorax appears intact. IMPRESSION: Mild cardiomegaly, with no acute cardiopulmonary process. Reviewed, Interpreted and Dictated by Acosta Butler MD Transcribed by Fadia Todd Authenticated and [facility]
--- NOTE | 2024-09-17 12:41 | ECG_ITS ---
APPROVED REPORT Exam: Resting ECG HR:73 bpm ECG Measurements Heart Rate 73 AXES LA 146 P 15 QRSd 99 QRS 20 QT 405 T 138 QTc [address] DEVIATION AND MODERATE T-WAVE ABNORMALITY, CONSIDER LATERAL ISCHEMIA [-0.1+ mV T-WAVE IN I/aVL/V5/V6] ABNORMAL ECG UNCONFIRMED REPORT Electronically signed by : Mani Blood MD 09/18/2024 15:16:32
== END 2024-09-17 23:59 | disposition home or self-care (01) ==
LOC: RAD 12:07
PROVIDERS: PCP Nurse Practitioner; Visit Provider Nurse Practitioner
DX: J40 Bronchitis, not specified as acute or chronic (principal); J18.9 Pneumonia, unspecified organism
CPT/HCPCS: 71046; 93005

== ENCOUNTER 2024-09-24 13:10 | Outpatient (CLI) | payer MEDICARE, SELFPAY | END 2024-09-24 23:59 | disposition home or self-care (01) | LOC: LAB.DROPOF 09-25 12:35 | PROVIDERS: PCP Nurse Practitioner; Visit Provider Nurse Practitioner | DX: N39.0 Urinary tract infection, site not specified (principal) | CPT/HCPCS: 87086 ==

== ENCOUNTER 2024-12-14 09:50 | Outpatient (CLI) | payer MEDICARE, SELFPAY ==
[2024-12-14 18:18] LABS: Microscopic, Urine URINE MICROSCOPIC (MICROSCOPIC)
[2024-12-14 18:38] LABS: Appearance,Urine CLEAR (Clear); Bilirubin,Urine Negative (Negative); Blood, Urine Negative (Negative); Color,Urine YELLOW (Yellow); Glucose,Urine (UA) Negative (Negative); Ketones,Urine Negative (Negative); Leukocyte Esterase,Urine 2+ (Negative); Nitrate,Urine Negative (Negative); Protein,Urine Negative (Negative); Urobilinogen,Urine 0.2 EU/dl (0.2)
[2024-12-14 18:39] LABS: Basophils % 0.5 % (0.1-2.0); Creatinine,Urine Random 87 mg/dL (Not Estab.); Eosinophils # 0.2 Kmm3 (0.0-0.4); Eosinophils % 1.8 % (0.1-12.0); Hematocrit 37.7 % (37.0-47.0); Hemoglobin 12.8 g/dL (12.2-16.2); Lymphocytes # 3.4 K/mm3 (0.7-4.5); Lymphocytes % 41.6 % (10-50); Mean Corpuscular Hemoglobin 31.9 pg (27.0-31.2); Mean Platelet Volume 10.4 fl (7.4-10.4); Microalbumin/Creatinine Ratio 29.3; Monocytes # 0.5 K/mm3 (0.1-1.0); Monocytes % 6.7 % (1.7-9.3); Nucleated Red Blood Cells # 0 10^3/uL; Nucleated Red Blood Cells % 0 %; Platelet Count 214 K/mm3 (142-424); Red Blood Count 4.01 M/mm3 (4.20-5.40); Red Cell Distribution Width 12.2 % (11.5-17.5); Red Cell Distribution Width-SD 42.3 fL; White Blood Count 8.1 K/mm3 (4.8-10.8)
[2024-12-14 19:16] LABS: Bacteria,Urine Trace /lpf; WBC,Urine 50-100 #/hpf (0-3)
[2024-12-14 19:34] LABS: Albumin Level 4.1 g/dl (3.5-5.0); Chloride 103 mmol/L (98-107); Sodium 137 mmol/L (136-145)
[2024-12-14 19:35] LABS: Potassium 4.1 mmoL/L (3.5-5.1)
[2024-12-14 19:37] LABS: Alanine Aminotransferase 26 U/L (12-78); Albumin/Globulin Ratio 1.5 (1.1-1.8); Anion Gap 15.1 mEq/L (5-15); Aspartate Amino Transferase 41 U/L (14-36); Blood Urea Nitrogen 13 mg/dl (7-17); Carbon Dioxide 23 mmol/L (22.0-30.0); Estimated Glomerular Filt Rate 119 ml/min (>60); GFR (African American) 144 ML/MIN (>60); Globulin 2.7 g/dL (1.3-3.2); Total Protein,Serum 6.8 g/dl (6.3-8.2)
[2024-12-14 19:38] LABS: Alkaline Phosphatase 69 U/L (38-126); Bilirubin,Total 0.8 mg/dl (0.2-1.3); Calcium 9.8 mg/dl (8.4-10.2); Chol/HDL Ratio 6.5 (1-3.5); Cholesterol 242 mg/dl (140-200); Glucose 176 mg/dl (74-100); HDL Cholesterol 37 mg/dl (40-60)
[2024-12-14 19:49] LABS: Direct LDL Cholesterol 69.01 mg/dL (100-129)
[2024-12-14 19:57] LABS: Triglycerides 752 mg/dl (30-150)
[2024-12-14 20:40] LABS: Free T4 (Free Thyroxine) 1.75 ng/dl (0.78-2.19)
[2024-12-14 20:49] LABS: Hemoglobin A1C 7.1 % (4.0-6.0)
== END 2024-12-14 23:59 | disposition home or self-care (01) ==
LOC: LAB.DROPOF 12-15 10:39
PROVIDERS: PCP Nurse Practitioner; Visit Provider Nurse Practitioner
DX: R30.0 Dysuria (principal); B95.7 Other staphylococcus as the cause of diseases classified elsewhere; K21.9 Gastro-esophageal reflux disease without esophagitis; E78.5 Hyperlipidemia, unspecified; I10 Essential (primary) hypertension; E11.69 Type 2 diabetes mellitus with other specified complication; I25.810 Atherosclerosis of coronary artery bypass graft(s) without angina pectoris
CPT/HCPCS: 80053; 80061; 81001; 82043; 82570; 83036; 84439; 84443; 85025; 87086; 87088; 87186

== ENCOUNTER 2025-01-28 13:30 | Outpatient (CLI) | payer MEDICARE, SELFPAY ==
--- OUTSIDE RECORDS SUMMARY | 2024-12-01 14:45 | XMS_ITS | Encounter Summary ---
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 Referred To Contact Obstetrics & Gynecology - Female Pelvic Medicine And Reconstructive Surgery / Gynecology Diagnoses OAB (overactive bladder) cysto Procedures NV CYSTO CALIBRATION DILAT URTL STRIX/STENOSIS NV CYSTOURETHROSCOPY PROCEDURE Karli Juares MD [address] [place] [address] Phone: tel: fax: Karli Juares MD [address] [place] [address] Phone: tel: fax: Referral ID Status Reason Start Date Expiration Date Visits Requested Visits Authorized [id number] Authorization Not Needed 12/01/2024 12/01/2025 1 1 Encounter Details Date Type Department Care Team (Latest Contact Info) Description 12/01/2024 2:45 PM EDT Procedure visit [facility] Urogynecology [address] [address] Karli Juares MD [address] [place] [address] ASB (asymptomatic bacteriuria) (Primary Dx) Social History Tobacco Use Types Packs/Day Years Used Date Smoking Tobacco: Never Smokeless Tobacco: Never Alcohol Use Standard Drinks/Week Comments No 0 (1 standard drink = 0.6 oz pur e alcohol) Sexually Active Control Partners Comments Not Currently Comments No Sex and Gender Information Value Date Recorded Sex Assigned at Not on file Legal Sex Female 8:27 AM EDT Gender Identity Not on file Sexual Orientation Not on file documented as of this encounter Progress Notes * Karli Juares MD - 12/01/2024 2:45 PM EDT Images from the original note were not included. Urogynecology Procedure Note 12/01/24 1:18 PM Diane F Kalpana 1945 PROCEDURE Office cystourethroscopy SURGEON Karli Juares MD PREOPERATIVE DIAGNOSIS Asymptomatic bacteriuria POSTOPERATIVE DIAGNOSIS Same ANESTHESIA 2% lidocaine jelly per urethra COMPLICATIONS None ESTIMATED BLOOD LOSS None SPECIMENS Bladder washings FINDINGS 1. Urethra was normal. 2. Bladder appeared normal. 3. Trigone appeared normal. 4. Ureters demonstrated normal anatomic location bilaterally, efflux was not observed. 5. Patient exhibits no spasms during the study. Brief History/Indication: Patient is a 79 y.o. female with asymptomatic bacteriuria who presents for a Cystourethroscopy. Risks including UTI were reviewed and written informed consent was obtained. DESCRIPTION OF PROCEDURE The patient was placed in the dorsal lithotomy position in stirrups. The perineum was prepped and draped in the standard sterile fashion. Viscous Lidocaine jelly was injected into the urethra. A rigid 70 degree cystoscope was then navigated into the bladder under direct visualization. Panendoscopy of the bladder did not reveal any suspicious lesions, papillary growths, foreign bodies or calculi (see above findings for details). Bladder washings were then obtained and sent for cytology. The cystoscope was then changed to a 0 degree scope and slowly withdrawn with adequate visualization of the entire urethra; no urethral abnormalities were detected. The cystoscope was removed. The patient tolerated the procedure well and without any immediate complications. IMPRESSION Normal cystourethroscopy PLAN Will notify patient of results of bladder washings F/u prn Karli Juares MD, FACOG, [facility] Division of Urogynecology and Reconstructive Pelvic Surgery [address] [place] [address] [email or web address] documented in this encounter Miscellaneous Notes * Addendum Note - Prosper Aguilera MA - 12/01/2024 2:45 PM EDTAddended by: PROSPER AGUILERA on: 12/01/2024 03:11 PM Modules accepted: Orders documented in this encounter Plan of Treatment Not on file documented as of this encounter Goals Goal Patient Goal Type Associated Problems Recent Progress Patient-Stated? Author Blood Pressure < 140/90 Blood Pressure 116/76(2014 9:26 AM EDT) No Penelope Coffman MD BMI (Calculated) < 30 General 22.5(10/21/19 10:55 AM EST) No Penelope Coffman MD Eat better, exercise, reach an ideal body weight General No Penelope Coffman MD HEMOGLOBIN A1C < 7.0 Result Component 7.5( 10:08 AM EDT) No Penelope Coffman MD documented as of this encounter Procedures Procedure Name Priority Date/Time Associated Diagnosis Comments NON-RECEIVING MANAGER CYTOLOGY REQUEST Routine 12/01/2024 3:11 PM EDT ASB (asymptomatic bacteriuria) [facility] URINALYSIS POC Routine 12/01/2024 2: 30 PM EDT ASB (asymptomatic bacteriuria) documented in this encounter Results * NON-RECEIVING MANAGER CYTOLOGY REQUEST (12/01/2024 3:11 PM EDT) CASE REPORT Non-gynecologic Cytology Case: [id number] Authorizing Provider: Karli Juares MD Collected: 12/01/20241 Ordering Location: [facility] Urogynecology [place] Received: 12/01/2024 1511 Pathologist: Radha Madrigal MD Specimen: Bladder, Urinary 12/02/2024 2:15 PM EDT [facility] NON-RECEIVING MANAGER CYTOLOGY FINAL DIAGNOSIS Urinary bladder wash: - Negative for high-grade urothelial carcinoma. 12/02/2024 2:15 PM EDT [facility] at 1415 EDT EMBEDDED IMAGES 12/02/2024 2:15 PM EDT [facility] MICROSCOPIC DESCRIPTION Microscopic examination is performed and the findings corroborate the diagnosis. 12/02/2024 2:15 PM EDT [facility] Gross Description Urinary bladder wash, Rec'd 40ml of yellow fluid. (TP) Gross description has been reviewed by screening jewelry salesperson. 12/02/2024 2:15 PM EDT [facility] Wash URINARY BLADDER STRUCTURE / Unknown 12/01/2024 3:11 PM EDT 12/01/2024 3:11 PM EDT us Karli Juares MD CYTOLOGY ORDERABLES [place] [address] * (ABNORMAL) [facility]P URINALYSIS POC (12/01/2024 2:30 PM EDT) UA Color POC Yellow Color 12/01/2024 2:38 PM EDT [facility] UA Appear POC Clear Clear 12/01/2024 2:38 PM EDT [facility] UA Gluc POC 100(A) Negative mg/dL 12/01/2024 2:38 PM EDT [facility] Bili POC Negative Negative 12/01/2024 2:38 PM EDT [facility] UA Ketones POC Negative Negative mg/dL 12/01/2024 2:38 PM EDT [facility] UA SG POC <=1.005 1.001 - 1.035 no units 12/01/2024 2:38 PM EDT [facility] UA Blood POC Trace-Intac t(A) Negative 12/01/2024 2:38 PM EDT [facility] pH POC 5.5 5.0 - 8.0 pH 12/01/2024 2:38 PM EDT [facility] Protein POC Negative Negative mg/dL 12/01/2024 2:38 PM EDT [facility] UA Urobilinogen POC 0.2 0.2, 1.0 12/01/2024 2:38 PM EDT [facility] UA Nitrite POC Negative Negative 12/01/2024 2:38 PM EDT [facility] UA Leuk Est POC Negative Negative 2:38 PM EDT [facility] Urine STRUCTURE OF URINARY TRACT PROPER / Unknown 12/01/2024 2:30 PM EDT 12/01/2024 2:38 PM EDT Karli Juares MD POINT OF CARE TEST LINETTE DALE Final Result [facility] UROGYNECOLOG[address] [place] [address] documented in this encounter Visit Diagnoses Diagnosis ASB (asymptomatic bacteriuria)- Primary Other nonspecific finding on examination of urine documented in this encounter Additional Health Concerns Assessment Noted Time A fall risk assessment has been complete d for the patient 02/09/2015 9:23 AM EDT documented as of this encounter Care Teams Rehabilitation Services Aide Relationship Specialty Start Date End Date Joni Mcdonald MD [address] [facility] [address] [place] [address] Consulting Physician Ophthalmology 04/13/15 documented as of this encounter
--- OUTSIDE RECORDS SUMMARY | 2025-01-29 23:27 | XMS_ITS | Encounter Summary ---
Author Organization [place] [address] Care Team Providers Care Skein Tier Name Role Phone Joni Mcdonald MD Unavailable Encounter Details Date Type Department Care Team (Latest Contact Info) Description 12/02/2024 Results Follow-Up [facility] [place] [address] [address] Penelope Rosario PA-C [address] [place] [address] NON-BREASTER CYTOLOGY REQUEST Social History Tobacco Use Types Packs/Day Years [...] on file documented as of this encounter Plan of Treatment Not on file documented as of this encounter Goals Goal Patient Goal Type Associated Problems Recent Progress Patient-Stated? Author Blood Pressure < 140/90 Blood Pressure 116/76(2014 9:26 AM EDT) No Penelope Coffman MD BMI (Calculated) < 30 General 22.5(10/21/19 25 10:55 AM EST) No Penelope Coffman MD Eat better, exercise, reach an ideal body weight General No Penelope Coffman MD HEMOGLOBIN A1C < 7.0 Result Component 7.5( 5 10:08 AM EDT) No Penelope Coffman MD documented as of this encounter Visit Diagnoses Not on filedocumented in this encounter Additional Health Concerns Assessment Noted Time A fall risk assessment has been complete d for the patient 02/09/2015 9:23 AM EDT documented as of this encounter Care Teams Skein Tier Relationship Specialty Start Date End Date Joni Mcdonald MD [address] [facility] [address] [place] [address] Consulting Physician Ophthalmology 04/13/15 documented as of this encounter
--- OUTSIDE RECORDS SUMMARY | 2025-01-29 23:27 | XMS_ITS | Clinical Summary ---
Author Organization [facility] Address [facility] [address] [facility] [place] [address] Phone Care Team Providers Care Manager Ob Name Role Phone Joni Mcdonald MD Unavailable [phone] Allergies Active Allergy Reactions Criticality Noted Date Comments Ramipril Cough 02/09/2015 Rosuvastatin Myalgia 02/09/2015 Estrogens 02/09/2015 Simvastatin Myalgia 02/09/2015 Medications OMEGA-3 FATTY ACIDS/FISH OIL (OMEGA 3 FISH OIL ORAL) Take by mouth. Active aspirin 81 mg Oral Tablet, Delayed Release (E.C.) Take 81 mg by mouth daily. Active Blood-Glucose Meter Misc Kit Use to check blood sugar daily Dx 250 1 Kit 0 5 Active Blood Sugar Diagnostic Misc Strip Use to check blood sugar daily Dx. 250 Brand as per insurance coverage 100 Strip 11 5 Active Lancets Misc Misc Use to check blood sugars daily Dx. 250 1 box 11 5 Active methocarbamol (ROBAXIN) 500 mg Oral TabletIndications: Muscle spasm of back Take 1 Tab by mouth 2 times daily as needed for Muscle spasms. 30 Tab 0 5 Active gemfibrozil (LOPID) 600 mg Oral Tablet Take 1 Tab by mouth 2 times daily. 60 Tab 2 5 Active sitaGLIPtin (JANUVIA) 50 mg Oral Tablet Take 1 Tab by mouth daily. 30 Tab 2 5 Active ergocalciferol (VITAMIN D) 50,000 unit Oral Capsule Take 1 Cap by mouth two times a week. 8 Cap 2 5 Active lisinopril (PRINIVIL;ZESTRIL) 20 mg Oral Tablet TAKE 1 TABLET EVERY DAY 90 Tab 0 5 Active levothyroxine (SYNTHROID) 75 mcg Oral Tablet TAKE 1 TABLET EVERY DAY 90 Tab 0 5 Active glyBURIDE (DIABETA) 5 mg Oral Tablet TAKE ONE TABLET BY MOUTH TWICE DAILY WITH MEALS 60 Tab 0 5 Active glyBURIDE (DIABETA) 5 mg Oral Tablet TAKE ONE TABLET BY MOUTH TWICE DAILY WITH MEALS 60 Tab 0 5 Active ACCU-CHEK DEIDRE PLUS METER Misc Misc USE TO CHECK BLOOD SUGAR DAILY 1 Each 0 6 Active metFORMIN (GLUCOPHAGE) 500 mg Oral TabletIndications: Type 2 diabetes mellitus with hyperglycemia (HCC) TAKE 2 TABLETS TWICE DAILY 120 Tab 6 Active Active Problems Patient Care Coordination No te Formatting of this note migh t be different from the original. No medications to be refilled here. Requests should go thru Dr. Levin in [place] - pt's new PCP Problem Noted Date Diagnosed Date ASB (asymptomatic bacteriuria) 10/20/2024 Hypercalcemia 05/30/2015 Type 2 diabetes mellitus with hyperglycemia 01/18 Hyperlipidemia LDL goal < 100 02/09/2015 Hypertriglyceridemia 02/09/2015 Essential hypertension 02/09/2015 Vitamin D deficiency 02/09/2015 Hypothyroidism due to acquired atrophy of thyroi d 02/09/2015 Cataract associated with type 2 diabetes mellitu s 02/09/2015 Resolved Problems Problem Noted Date Diagnosed Date Resolved Date Neck pain of over 3 months duration 02/09/2015 02/09/2015 Chronic otitis externa 02/09/201502/09 Encounters Date Type Department Care Team Description 12/02/2024 Results Follow-Up [facility] [place] [address] [address] Penelope Rosario PA-C NON-CAP SIZER CYTOLOGY REQUEST 12/01/2024 2:45 PM EDT Procedure visit [facility] Urogynecology [address] [address] Karli Juares MD ASB (asymptomatic bacteriuria) (Primary Dx) from Last 3 Months Immunizations Immunization Administration Dates Next Due Pneumococcal Conjugate Vaccine 13 Valent 015 Pneumococcal Polysaccharide 23 Valent 05/11/2013 Tdap 02/09/2015 Surgical History Surgery Date Site/Laterality Comments CORONARY ARTERY BYPASS GRAFT 2003 HYSTERECTOMY, TOTAL ABDOMINAL benign reasons, fibroids APPENDECTOMY Medical History Medical History Date Comments Other and unspecified hyperlipidemia Unspecified hypothyroidism Unspecified essential hypertension Cervicalgia Other chronic otitis externa Type II or unspecified type diabetes mellitus without mention of complication, not stated as uncontrolled Vitamin D deficiency History of shingles on back Family History Medical History Relation Name Comments Early Brother 1 - passe d away Cancer Brother 2 pancreatic Diabetes Father Heart Disease Father Stroke Father Heart Disease Mother CHF Relation Name Status Comments Brother 1 Brother 2 Brother 3 Alive Brother 4 Alive Brother 5 Alive Father Mother Sister 1 Alive Sister 2 Alive Sister 3 Alive Social History Tobacco Use Types Packs/Day Years Used Date Smoking Tobacco: Never Smokeless Tobacco: Never Tobacco Cessation:Counseling Given: Yes Alcohol Use Standard Drinks/Week Comments No 0 (1 standard drink = 0.6 oz pur e alcohol) Sexually Active Control Partners Comments Not Currently Comments No Sex and Gender Information Value Date Recorded Sex Assigned at Not on file Legal Sex Female 8:27 AM EDT Gender Identity Not on file Sexual Orientation Not on file Obstetrics History Para Term AB IAB SAB Ectopic Multiple Livin g Live Births 2 2 2 2 2 Date Outcome GA Total Labor Labor/2nd/3rd Weight Sex Type Anes PTL Frida A1 A5 Name Clin Term M None Living Term F None Living Comments Mother had 2 sets of twins a nd her son has twins and her sister's son has twins. Last Filed Vital Signs Vital Sign Reading Time Taken Comments Blood Pressure 116/76 05/30/2015 9:26 AM EDT Pulse 68 10/20/2024 10:55 AM EST Temperature 36.6 C (97.8 F) 05/30/2015 9:26 AM EDT Respiratory Rate 16 05/30/2015 9:26 AM EDT Oxygen Saturation 99% 10/20/2024 10:55 AM EST Inhaled Oxygen Concentration - - Weight 57.4 kg (126 lb 9.6 oz) 10/20/2024 10:55 AM EST Height 160 cm (5' 3 ) 10/20/2024 10:55 AM EST Body Mass Index 22.43 10/20/2024 10:55 AM EST Plan of Treatment Health Maintenance Due Date Last Done Comments Wellness Exam Medicare 1948 Diabetic Eye Exam 1963 Zoster (1 of 2) 1995 Bone Density Screening 2010 Hemoglobin A1c 11/29/2015 05/30/2015, 02/09/2015 Microalbuminuria 02/10/2016 02/09/2015 Lipids 05/30/2016 05/30/2015, 02/09/2015 RSV or 60+ (1 - 1-d ose 75+ series) 2020 COVID-19 Vaccine (1 - 2023-2 5 season) 2024 DTaP/TDaP/Td (2 - Td or Tdap) 02/09/2025 02/09/2015 Influenza Vaccine (Season Ended) 2025 05/30/2015 (Declined) Hepatitis C Screening Completed 02/09/2015 Pneumococcal Vaccine 50+ Completed 015, 05/11/2013 Hepatitis B Vaccine Aged Out No longe r eligible based on patient's age to complete this topic Meningococcal B Vaccine Aged Out No l onger eligible based on patient's age to complete this topic Goals Goal Patient Goal Type Associated Problems [...] 10:08 AM EDT) No Penelope Coffman MD Procedures Procedure Name Priority Date/Time Associated Diagnosis Comments NON-CAP SIZER CYTOLOGY REQUEST Routine 12/01/2024 3:11 PM EDT ASB (asymptomatic bacteriuria) [facility] URINALYSIS POC Routine 12/01/2024 2: 30 PM EDT ASB (asymptomatic bacteriuria) LIPID SCREEN Routine 05/30/2015 10:08 AM EDT Hyperlipidemia LDL goal < 100 Hypertriglyceridemia HEMOGLOBIN A1C Routine 05/30/2015 10:08 AM EDT Type 2 diabetes mellitus with hyperglycemia (HCC) ACUTE HEPATITIS PANEL Routine 02/09/2015 9:47 AM EDT Well woman exam (no gynecological exam) MICROALBUMIN/CREATI NINE RATIO URINE Routine 02/09/2015 9:06 AM EDT Type 2 diabetes mellitus with diabetic cataract (HCC) from Last 3 Months or Most Recently Relevant to Health Maintenance Results * NON-CAP SIZER CYTOLOGY REQUEST (12/01/2024 3:11 PM EDT) CASE REPORT Non-gynecologic Cytology Case: [id number] Authorizing Provider: Karli Juares MD Collected: 12/01/2024 1511 Ordering Location: [facility] [place] Received: 12/01/2024 1511 Pathologist: Radha Madrigal MD Specimen: Bladder, Urinary 12/02/2024 2:15 PM EDT [facility] NON-CAP SIZER CYTOLOGY FINAL DIAGNOSIS Urinary bladder wash: - Negative for high-grade urothelial carcinoma. 12/02/2024 2:15 PM EDT [facility] at 1415 EDT EMBEDDED IMAGES 12/02/2024 2:15 PM EDT [facility] MICROSCOPIC DESCRIPTION Microscopic examination is performed and the findings corroborate the diagnosis. 12/02/2024 2:15 PM EDT [facility] Gross Description Urinary bladder wash, Rec'd 40ml of yellow fluid. (TP) Gross description has been reviewed by screening adobe ball mixer. 12/02/2024 2:15 PM EDT [facility] Wash URINARY BLADDER STRUCTURE / Unknown 12/01/2024 3:11 PM EDT 12/01/2024 3:11 PM EDT us Karli Juares MD CYTOLOGY ORDERABLES Fin al Result [facility] [address] [place], [place] [id number] * (ABNORMAL) [facility] URINALYSIS POC (12/01/2024 2:30 PM EDT) UA Color POC Yellow Color 12/01/2024 2:38 PM EDT [facility] UA Appear POC Clear Clear 12/01/2024 2:38 PM EDT [facility] UA Gluc POC 100(A) Negative mg/dL 12/01/2024 2:38 PM EDT [facility] UA Bili POC Negative Negative 12/01/2024 2:38 PM EDT [facility] UA Ketones POC Negative Negative mg/dL 12/01/2024 2:38 PM EDT [facility] UA SG POC <=1.005 1.001 - 1.035 no units 12/01/2024 2:38 PM EDT [facility] UA Blood POC Trace-Intac t(A) Negative 12/01/2024 2:38 PM EDT [facility] UA pH POC 5.5 5.0 - 8.0 pH 12/01/2024 2:38 PM EDT [facility] UA Protein POC Negative Negative mg/dL 12/01/2024 2:38 PM EDT [facility] UA Urobilinogen POC 0.2 0.2, 1.0 12/01/2024 2:38 PM EDT [facility] UA Nitrite POC Negative Negative 12/01/2024 2:38 PM EDT [facility] UA Leuk Est POC Negative Negative 2:38 PM EDT [facility] Urine STRUCTURE OF URINARY TRACT PROPER / Unknown 12/01/2024 2:30 PM EDT 12/01/2024 2:38 PM EDT us Karli Juares MD POINT OF CARE TEST LINETTE DALE Final Result [facility] UROGYNECOLOGY [place] [address] [place] [address] [place] [address] * (ABNORMAL) HEMOGLOBIN A1C (05/30/2015 10:08 AM EDT) Hgb A1c 7.5(H) <=7.0 % [facility] Comment: Reference Interval for Hgb A1c Hgb A1c Interpretation < 6.0 Non-Diabetic Range 6.0 - 7.0 ADA Therapeutic Target > 7.0 Action suggested Blood specimen (specimen) 05/30/2015 10:08 AM EDT 05/30/2015 5:28 PM EDT us Penelope Delacruz MD CHEMISTRY ORDERABLE S Final Result Performing Organization Address [facility] de Phone Number [facility] [address] [place] [address] * (ABNORMAL) LIPID SCREEN (05/30/2015 10:08 AM EDT) Cholesterol 249(H) <=200 mg/dL [facility] Comment: < 200 Desirable 200 - 239 Borderline High >= 240 High Triglyceride 743(H) <=150 mg/dL [facility] Comment: < 150 Normal 150 - 199 Borderline High 200 - 499 High >= 500 Very High HDL 34(L) >=40 mg/dL [facility] Comment: > 60 Optimal 40 - 60 Acceptable < 40 Low LDL Calculated 66 <=100 mg/dL [facility] Comment: < 100 Optimal 100 - 129 Near or above optimal 130 - 159 Borderline High 160 - 189 High >= 190 Very High Blood specimen (specimen) 05/30/2015 10:08 AM EDT 05/30/2015 5:28 PM EDT us Penelope Delacruz MD CHEMISTRY ORDERABLE S Edited Result - Final Performing Organization Address [facility] de Phone Number [facility] [address] [place] [address] * ACUTE HEPATITIS PANEL (02/09/2015 9:47 AM EDT) Hep Bs Ag Negative Negative [facility] Hep B Core IgM Negative Negative [facility] Hep A IgM Negative Negative [facility] Hep C Ab Negative Negative [facility] Blood specimen (specimen) UPPER LIMB STRUCTURE / Unknown 02/09/2015 9:47 AM EDT 02/09/2015 3:57 PM EDT us Penelope Delacruz MD CHEMISTRY ORDERABLE S Edited Result - Final Performing Organization Address [facility] Co de Phone Number [facility] [address] [place] [address] * MICROALBUMIN/CREATININE RATIO URINE (02/09/2015 9:06 AM EDT) Urine Microalb <12.0 mg/L [facility] Urine Creatinine 75.4 mg/dL [facility] Ur Microalb/Creat See Footnote 0 - 20 [facility] Comment:Unable to calculate due to value outside linearity. Urine specimen (specimen) 02/09/2015 9:06 AM EDT 02/09/2015 7:09 PM EDT us Penelope Delacruz MD URINE ORDERABLES Fi nal Result Performing Organization Address [facility] Co de Phone Number [facility] [address] [place] [address] from Last 3 Months or Most Recently Relevant to Health Maintenance Insurance MEDICARE ADVANTAGE MR ANTHEM MEDICARE ADVANTAGE MR Care Teams Manager Ob Relationship Specialty Start Date End Date Joni Mcdonald MD [address] [place] [address] Consulting Physician Ophthalmology 04/13/15
== END 2025-01-28 23:59 | disposition home or self-care (01) ==
LOC: LAB.DROPOF 01-29 23:26
PROVIDERS: PCP Nurse Practitioner; Visit Provider Nurse Practitioner
DX: R10.9 Unspecified abdominal pain (principal)
CPT/HCPCS: 87086

== ENCOUNTER 2025-03-25 13:30 | Outpatient (CLI) | payer MEDICARE, SELFPAY ==
[2025-03-25 20:27] LABS: Alanine Aminotransferase 24 U/L (12-78); Albumin Level 4.2 g/dl (3.5-5.0); Albumin/Globulin Ratio 1.7 (1.1-1.8); Alkaline Phosphatase 72 U/L (38-126); Anion Gap 15.1 mEq/L (5-15); Aspartate Amino Transferase 38 U/L (14-36); Bilirubin,Total 0.5 mg/dl (0.2-1.3); Blood Urea Nitrogen 14 mg/dl (7-17); Calcium 10.1 mg/dl (8.4-10.2); Carbon Dioxide 24 mmol/L (22.0-30.0); Chloride 101 mmol/L (98-107); Creatinine,Serum 0.60 mg/dl (0.52-1.04); Estimated Glomerular Filt Rate 96 ml/min (>60); GFR (African American) 116 ML/MIN (>60); Globulin 2.5 g/dL (1.3-3.2); Glucose 238 mg/dl (74-100); Potassium 4.1 mmoL/L (3.5-5.1); Sodium 136 mmol/L (136-145); Total Protein,Serum 6.7 g/dl (6.3-8.2)
[2025-03-25 20:29] LABS: Hemoglobin A1C 6.7 % (4.0-6.0)
[2025-03-25 20:39] LABS: Free T4 (Free Thyroxine) 1.57 ng/dl (0.78-2.19)
[2025-03-25 20:55] LABS: Thyroid Stimulating Hormone 1.99 uIU/mL (0.465-4.68)
[2025-03-25 21:14] LABS: Vitamin B12 458 pg/mL (239-931)
[2025-03-25 21:23] LABS: 25-OH Vitamin D, Total 45.2 ng/mL (30-100)
--- OUTSIDE RECORDS SUMMARY | 2025-03-26 10:26 | XMS_ITS | Clinical Summary ---
Author Organization [facility] Address [address] [place] [address] Care Team Providers Care Food And Beverage Intern Name Role Phone Henri Levin MD Primary Care Provider [phone] Allergies Active Allergy Reactions Criticality Noted Date Comments Other Rash Low 2018 Unknown name purple pill for bladder infection Medications lisinopril (PRINIVIL,ZESTRI L) 20 MG tablet Take 20 mg by mouth Daily. Active metFORMIN (GLUCOPHAGE) 500 MG tablet Take 500 mg by mouth 2 (Two) Times a Day With Meals. Active glyBURIDE (DIAbeta) 5 MG tablet Take 5 mg by mouth 2 (Two) Times a Day With Meals. Active aspirin 81 MG EC tablet Take 81 mg by mouth Daily. Active Cyanocobalamin (VITAMIN B 12 PO) Take by mouth. Active Family History Medical History Relation Name Comments Diabetes Father No Known Problems Mother Heart disease Sister 1 Heart disease Sister 2 Relation Name Status Comments Father Mother Sister 1 Alive Sister 2 Social History Tobacco Use Types Packs/Day Years Used Date Smoking Tobacco: Never Smokeless Tobacco: Never Alcohol Use Standard Drinks/Week Comments No 0 (1 standard drink = 0.6 oz pur e alcohol) Abuse Screen Answer Date Recorded Unsafe at Home or Work/School Not on file Feels Threatened by Someone? Not on file 06/2023 Does Anyone Keep You from Co ntacting Others or Doint Things Outside the Home? Not on file 05/29/2023 Physical Sign of Abuse Present Not on file 1 Housing Stability Answer Date Recorded Current Living Arrangements Not on file 05/19 Potentially Unsafe Housing Conditions Not on terrence e 05/29/2023 Family and Community Support Answer Mitchel e Recorded Help with Day-to-Day Activities Not on file 05/29/2023 Lonely or Isolated Not on file 05/29/2023 Employment Answer Date Recorded Do you want help finding or keeping work or a paul b? Not on file 05/29/2023 Disabilities Answer Date Recorded Concentrating, Remembering, or Making Decisions Difficulty Not on file 05/29/2023 Doing Errands Independently Difficulty Not on fi le 05/29/2023 Education Answer Date Recorded Help with school or training? Not on file Preferred Language Not on file 05/29/2023 Comments Unknown Sex and Gender Information Value Date Recorded Sex Assigned at Not on file Legal Sex Female 11:46 AM EDT Gender Identity Not on file Sexual Orientation Not on file Last Filed Vital Signs Vital Sign Reading Time Taken Comments Blood Pressure 146/72 2018 9:56 AM EDT Pulse 70 2018 9:56 AM EDT Temperature - - Respiratory Rate - - Oxygen Saturation - - Inhaled Oxygen Concentration - - Weight 59.4 kg (131 lb) 2018 9:56 AM EDT Height 160 cm (5' 3 ) 2018 9:56 AM EDT Body Mass Index 23.21 2018 9:56 AM EDT Plan of Treatment Health Maintenance Due Date Last Done Comments DXA SCAN 1945 TDAP/TD VACCINES (1 - Tdap) 1964 COLOGUARD 1990 COLON CANCER SCREENING 5 YEAR SIGMOIDOSCOPY 1990 COLONOSCOPY 1990 COL[address]ECTAL CANCER SCREENING 1990 CT COLONOGRAPHY 1990 FECAL OCCULT BLOOD TEST 1990 FIT Testing (1 year) 1990 Pneumococcal Vaccine 50+ (1 of 1 - PCV) 1995 ZOSTER VACCINE (1 of 2) 1995 ANNUAL PHYSICAL 2018 RSV Vaccine - Adults (1 - 1-dose 75+ series) COVID-19 Vaccine (1 - 2023- season) 2024 INFLUENZA VACCINE 05/19/2025 Insurance [id number] MEDICARE ADVANTAGE Care Teams Food And Beverage Intern Relationship Specialty Start Date End Date Henri Levin MD [address] [facility] [address] [facility] [address] [place] [address] PCP - General Family Medicine 12/17/17
--- OUTSIDE RECORDS SUMMARY | 2025-03-26 10:26 | XMS_ITS | Clinical Summary ---
Author Organization [facility] Address [address] [place] [address] Phone Care Team Providers Care Section Chief Name Role Phone Joni Mcdonald MD Unavailable [phone] Allergies Active Allergy Reactions Criticality Noted Date [...] Requests should go thru Dr. Levin in [place] - pt's new PCP Problem Noted Date [...] duration 02/09/2015 02/09/2015 Chronic otitis externa 02/09/201502/09 Immunizations Immunization Administration Dates Next Due Pneumococcal [...] Screening 2010 Hemoglobin A1c 11/29/2015 05/30/2015, 02/09/2015 Kidney Health: uACR 02/10/2016 02/09/2015 Kidney Health: eGFR 05/30/2016 05/30/2015, 04/13/2015, 02/09/2015 Lipids 05/30/2016 05/30/2015, 02/09/2015 RSV or 60+ (1 - 1-dose 75+ series) 2020 COVID-19 Vaccine (1 - 2023-2 5 season) 2024 DTaP/TDaP/Td (2 - Td or Tdap) 02/09/2025 02/09/2015 Influenza Vaccine (#1) 2025 5 (Declined) Hepatitis C Screening Completed 02/09/2015 Pneumococcal [...] Procedure Name Priority Date/Time Associated Diagnosis Comments COMPREHENSIVE METABOLIC PANEL Routine 05/30/2015 10:08 AM EDT Type 2 diabetes mellitus with hyperglycemia (HCC) Hyperlipidemia LDL goal < 100 Hypertriglyceridemia Essential hypertension LIPID SCREEN Routine 05/30/2015 10:08 AM EDT Hyperlipidemia LDL goal < 100 Hypertriglyceridemia HEMOGLOBIN A1C Routine 05/30/2015 10:08 AM EDT Type 2 diabetes mellitus with hyperglycemia (HCC) ACUTE HEPATITIS PANEL Routine 02/09/2015 9:47 AM EDT Well woman exam (no gynecological exam) MICROALBUMIN/CREATINI NE RATIO URINE Routine 02/09/2015 9:06 AM EDT Type 2 diabetes mellitus with diabetic cataract (HCC) from Last 3 Months or Most Recently Relevant to Health Maintenance Results * (ABNORMAL) HEMOGLOBIN A1C (05/30/2015 10:08 AM EDT) Hgb A1c 7.5(H) <=7.0 % [facility] Comment: Reference Interval for Hgb A1c Hgb A1c Interpretation < 6.0 Non-Diabetic Range 6.0 - 7.0 ADA Therapeutic Target > 7.0 Action suggested Blood specimen (specimen) 05/30/2015 10:08 AM EDT 05/30/2015 5:28 PM EDT Penelope Delacruz MD CHEMISTRY ORDERABLE S Final Result Performing Organization Address [facility] de Phone Number [facility] [address] [place] [address] * (ABNORMAL) LIPID SCREEN (05/30/2015 10:08 AM EDT) Cholesterol 249(H) <=200 mg/dL [facility] Comment: < 200 Desirable 200 - 239 Borderline High >= 240 High Triglyceride 743(H) <=150 mg/dL [facility] Comment: < 150 Normal 150 - 199 Borderline High 200 - 499 High >= 500 Very High HDL 34(L) >=40 mg/dL [facility] Comment: > 60 Optimal 40 - 60 Acceptable < 40 Low LDL Calculated 66 <=100 mg/dL [facility] Comment: < 100 Optimal 100 - 129 Near or above optimal 130 - 159 Borderline High 160 - 189 High >= 190 Very High Blood specimen (specimen) 05/30/2015 10:08 AM EDT 05/30/2015 5:28 PM EDT Penelope Delacruz MD CHEMISTRY ORDERABLE S Edited Result - Final Performing Organization Address [facility] de Phone Number [facility] [address] [place] [address] * (ABNORMAL) COMPREHENSIVE METABOLIC PANEL (05/30/2015 10:08 AM EDT) Sodium 138 136 - 145 mmol/L [facility] Potassium 4.1 3.5 - 5.0 mmol/L [facility] Chloride 96(L) 98 - 107 mmol/L [facility] Total CO2 22 22 - 29 mmol/L [facility] Anion Gap 20(H) 7 - 16 mmol/L [facility] Calcium 10.3(H) 8.8 - 10.2 mg/dL [facility] Glucose Lvl 159(H) 82 - 100 mg/dL [facility] BUN 12 8 - 23 mg/dL [facility] Creatinine 0.62 0.51 - 1.30 mg/dL [facility] Albumin 4.6 3.2 - 4.6 gm/dL [facility] Total Protein 7.7 6.4 - 8.3 gm/dL [facility] Bili Total 0.6 0.1 - 1.3 mg/dL [facility] AST 38 <=40 IU/L [facility] ALT 32 <=41 IU/L [facility] Alk Phos 78 35 - 104 IU/L [facility] GFR Afr Am >60 [facility] GFR Non Afr Am >60 [facility] Blood specimen (specimen) 05/30/2015 10:08 AM EDT 05/30/2015 5:28 PM EDT us Penelope Delacruz MD CHEMISTRY ORDERABLE S Edited Result - Final [facility] [address] [place] [address] * ACUTE HEPATITIS PANEL (02/09/2015 9:47 AM EDT) Hep Bs Ag Negative Negative [facility] Hep B Core IgM Negative Negative [facility] Hep A IgM Negative Negative [facility] Hep C Ab Negative Negative [facility] Blood specimen (specimen) UPPER LIMB STRUCTURE / Unknown 02/09/2015 9:47 AM EDT 02/09/2015 3:57 PM EDT Penelope Delacruz MD CHEMISTRY ORDERABLE S Edited Result - Final Performing Organization Address City/[facility]/ZIP Co de Phone Number [facility] [address] [place] [address] * MICROALBUMIN/CREATININE RATIO URINE (02/09/2015 9:06 AM EDT) Urine Microalb <12.0 mg/L [facility] Urine Creatinine 75.4 mg/dL [facility] Ur Microalb/Creat See Footnote 0 - 20 [facility] Comment:Unable to calculate due to value outside linearity. Urine specimen (specimen) 02/09/2015 9:06 AM EDT 02/09/2015 7:09 PM EDT us Penelope Delacruz MD URINE ORDERABLES Fi nal Result [facility] [address] [place] [address] from Last 3 Months or Most Recently Relevant to Health Maintenance Insurance MEDICARE ADVANTAGE MR MEDICARE ADVANTAGE MR Care Teams Section Chief Relationship Specialty Start Date End Date Joni Mcdonald MD [address] [place] [address] Consulting Physician Ophthalmology 04/13/15
--- OUTSIDE RECORDS SUMMARY | 2025-03-26 10:26 | XMS_ITS | Encounter Summary ---
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
== END 2025-03-25 23:59 | disposition home or self-care (01) ==
LOC: LAB.DROPOF 03-26 10:19
PROVIDERS: PCP Nurse Practitioner; Visit Provider Nurse Practitioner
DX: E78.5 Hyperlipidemia, unspecified (principal); E11.65 Type 2 diabetes mellitus with hyperglycemia; E55.9 Vitamin D deficiency, unspecified; E53.8 Deficiency of other specified B group vitamins; E03.9 Hypothyroidism, unspecified; R30.0 Dysuria
CPT/HCPCS: 80053; 82306; 82607; 83036; 84439; 84443; 87086

== ENCOUNTER 2025-04-12 12:51 | Outpatient (RCR) | payer MEDICARE, SELFPAY ==
--- NOTE | 2025-04-12 13:54 | HMH.PTOPEV ---
PT Outpatient Evaluation Rehab PT Outpatient Evaluation Start: 04/12/25 13:36 Freq: Status: Active Protocol: Document 04/12/25 13:44 SHARON (Rec: 04/12/25 13:54 SHARON [id number]) E-signed By Edwin Soto, PT Outpatient Therapy Subjective History Subjective History This is the initial PT Lymphedema eval for Diane Acuna , 80 yowf who presents with c/o B posterior leg pain x 3-4 mos with insidious onset of symptoms. She reports pain is aching in nature and present with standing or walking activity only. She reports pain is not present with sitting or laying. She reports no c/o numbness or tingling or low back pain at this time. She has PMH of DM with neuropathy, claudication, CABG x 3v, EBEN, CAD. New diagnosis of No cancer in past 12 months? Chief Complaint Pain Symptom Type Ache Symptoms Relieved By Rest/Positioning Symptoms Aggravated Standing,Physical Activity,Walking By Prior Functional None Limitations Current Functional Standing,Walking Limitations Symptom Description Activity Dependent Level of pain today 0 (0-10) Pain scale - at its 0 best (0-10) Pain scale - at its 2 worst (0-10) Hip/Knee Eval Gait Observation General Gait Pattern Wide Based Gait Observation Assistive Device Assistive Devices None / NA Palpation Tenderness bilateral Hip Palpation Tenderness Findings Hip Palpation proximal hamstring 1/4 Overall Comment MMT Hip Flexion Strength 4- Good- Grade Hip Abduction 4+ Good+ Strength Grade Hip Adduction 4+ Good+ Strength Grade Hip Extension 4 Good Strength Grade Knee Extension 5 Normal Strength Grade Knee Flexion 5 Normal Strength Grade Special Tests Hip Bowstring (Cram) Positive Left,Positive Right Test Hip Barbara Test Negative Left,Negative Right Sciatic Nerve Negative Left,Negative Right Tension Test Hip Scouring ( Negative Left,Negative Right Quadrant) Test Lower Extremity Functional Index Activities Today, do you or would you have any difficulty at all with: a.Any of your usual Moderate difficulty work, housework or school activities b. Your usual Moderate difficulty hobbies, recreational or sporting activities c. Getting into or Quite a bit of difficulty out of the bath d. Walking between Quite a bit of difficulty rooms e. Putting on your Moderate difficulty shoes or socks f. Squatting Moderate difficulty g. Lifting an object Moderate difficulty , like a bag of groceries from the floor h. Performing light Moderate difficulty activities around your home i. Performing heavy Moderate difficulty activities around your home j. Getting into or Quite a bit of difficulty out of a car k. Walking 2 blocks Moderate difficulty l. Walking a mile Moderate difficulty m. Going up or down Moderate difficulty 10 stairs (about 1 flight of stairs) n. Standing for 1 Extreme difficulty or unable to perform activity hour o. Sitting for 1 A little bit of difficulty hour p. Running on even Extreme difficulty or unable to perform activity ground q. Running on uneven Extreme difficulty or unable to perform activity ground r. Making sharp Extreme difficulty or unable to perform activity turns while running fast s. Hopping Extreme difficulty or unable to perform activity t. Rolling over in Quite a bit of difficulty bed LEFI Score Lower Extremity 27 Functional Index Score Outpatient Therapy Assessment Impairments Problems/ Palpation Tenderness,Impaired Endurance,Impaired Impairmments Walking,Impaired Standing,Impaired Household Care, Impaired Recreational Activities,Subjective C/O Pain, Impaired Self Care/Self Management Prognosis Rehab Potential Good Comment Signs and symptoms consistent with hamstring and hip flexor tightness in B LE. Skilled therapy is indicated to improve pain with walking or standing in order to aid pt improvement in QOL. Clinical Impression Consistent with No Diagnosis Additional details: M62.461 Hamstring Tightness PT Patient Goals PT Patient Goals PT Short Term In 2 wks Pt will Patient Goals 1) Decrease pain in B LE to 1/10 at worst 2) Walk > 5 min without pain. 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 3) Be independent with HEP to alleviate symptoms. Outpatient Therapy Plan of Care Treatment Plan May Include Therapeutic Exercise Yes Including Home Exercise Program Manual Therapy Yes Techniques Neuromuscular Re- Yes education Therapeutic Yes Activities to Return to Previous Functional/Work Level ADL/Self Care Yes Education Thermal Modalities Yes Electrical Yes Stimulation Ultrasound/ Yes Phonophoresis Orthotics/Bracing/ Yes Splinting Massage Yes Eval/Re-Eval Yes Frequency Times per week 2 Duration Number of Weeks 4 Addendums This patient is a No candidate for social or vocational rehab ? Patient/Guardian Yes verbally acknowledges understanding of treatment program and consents to further treatment? Patient/Guardian Yes verbally acknowledges understanding of diagnosis, prognosis and goals for treatment? Eval Complexity PT Charges 60846 - High Complexity Shoulder/Elbow Eval Shoulder Objective Measurements Elbow Objective Measurements PHYSICIAN CERTIFICATION: I certify the specified therapy services for Diane Tubbsos are required, authorized, and reviewed every 30 days.
== END 2025-04-12 23:59 | disposition home or self-care (01) ==
LOC: PT 12:51
PROVIDERS: PCP Nurse Practitioner; Visit Provider Nurse Practitioner
DX: M54.42 Lumbago with sciatica, left side (principal); M54.41 Lumbago with sciatica, right side
CPT/HCPCS: 97163

== ENCOUNTER 2025-07-27 10:31 | Outpatient (CLI) | payer MEDICARE, SELFPAY ==
[2025-07-27 15:23] LABS: Alanine Aminotransferase 26 U/L (12-78); Albumin Level 4.3 g/dl (3.5-5.0); Albumin/Globulin Ratio 1.2 (1.1-1.8); Alkaline Phosphatase 92 U/L (38-126); Anion Gap 18.2 mEq/L (5-15); Aspartate Amino Transferase 40 U/L (14-36); Bilirubin,Total 0.9 mg/dl (0.2-1.3); Blood Urea Nitrogen 13 mg/dl (7-17); Calcium 9.7 mg/dl (8.4-10.2); Carbon Dioxide 24 mmol/L (22.0-30.0); Chloride 99 mmol/L (98-107); Cholesterol 281 mg/dl (140-200); Creatinine,Serum 0.70 mg/dl (0.52-1.04); Estimated Glomerular Filt Rate 81 ml/min (>60); GFR (African American) 97 ML/MIN (>60); Globulin 3.5 g/dL (1.3-3.2); Glucose 274 mg/dl (74-100); HDL Cholesterol 30 mg/dl (40-60); Potassium 4.2 mmoL/L (3.5-5.1); Sodium 137 mmol/L (136-145); Total Protein,Serum 7.8 g/dl (6.3-8.2)
[2025-07-27 15:31] LABS: Triglycerides 1448 mg/dl (30-150)
[2025-07-27 16:00] LABS: Hemoglobin A1C 9.5 % (4.0-6.0)
== END 2025-07-27 23:59 ==
LOC: LAB.DROPOF 07-29 10:32
PROVIDERS: PCP Nurse Practitioner; Visit Provider Nurse Practitioner
DX: E11.65 Type 2 diabetes mellitus with hyperglycemia (principal); E78.5 Hyperlipidemia, unspecified
CPT/HCPCS: 80053; 80061; 82043; 82570; 83036